=== PATIENT | female | born 1945 | race Caucasian/White ===

== ENCOUNTER → 2017-01-27 | Outpatient (CLI) | payer MEDICARE, OTHER ==
[~2017-01-27] MED LIST: ALBU0.086 INH; ALBU1.25 NEB; HYDR25TA5 PO; LISI-519 PO; METF1000 PO; NYST1000 SWISH-SWAL; PARO10TA2 PO; PRED20 PO; ROBISYP6 PO; SPIRCAP INH; SYMB160A INH; VENTAER INH; ZOLO50TA PO
--- NOTE | 2017-01-28 09:06 | RSPPFT ---
DATE OF PROCEDURE: 01/27/17 COMMENTS: VOLUMES DYNAMIC: FVC moderately reduced, FEV1 severely reduced. FLOWS: FEV1% moderately reduced; FEF 25-75 severely reduced. IMPRESSION: Severe obstructive ventilatory defect with improvement post-bronchodilator.
== END ==
LOC: HRSP 07:55
PROVIDERS: ATTEND Family Medicine
DX: R06.02 Shortness of breath (principal)
CPT/HCPCS: 94060

== ENCOUNTER → 2017-10-12 | Outpatient (CLI) | payer MEDICARE, OTHER ==
[~2017-10-12] MED LIST changes: -ALBU0.086 INH; -HYDR25TA5 PO; +MOBI7.5T PO; -NYST1000 SWISH-SWAL; -PARO10TA2 PO; +PRED10PA PO; -PRED20 PO; -ROBISYP6 PO
[2017-10-12 09:55] LABS: BASOPHIL # 0.1 TH/MM3 (0-0.2); BASOPHIL % 0.7 % (0.0-2.0); EOSINOPHIL # 0.2 TH/MM3 (0-0.4); EOSINOPHIL % 1.2 % (0.0-4.0); HEMATOCRIT 35.4 % (35.0-46.0); HEMO FLAGS DIFF FINAL; LYMPH % 25.9 % (9.0-44.0); LYMPHOCYTE # 3.5 TH/MM3 (1.0-4.8); MEAN CELL VOLUME 87.6 FL (80.0-100.0); MEAN CORPUSCULAR HEMOGLOBIN 29.2 PG (27.0-34.0); MEAN CORPUSCULAR HGB CONC 33.3 % (32.0-36.0); MONO % 6.4 % (0.0-8.0); NEUT % 65.8 % (16.0-70.0); PLATELET COUNT 354 TH/MM3 (150-450); RED BLOOD COUNT 4.04 MIL/MM3 (4.00-5.30); RED CELL DISTRIBUTION WIDTH 13.5 % (11.6-17.2); WHITE BLOOD COUNT 13.6 TH/MM3 (4.0-11.0)
[2017-10-12 10:19] LABS: RHEUMATOID FACTOR TRIGGER LESS THAN 10.0 IU/ML (0.0-14.9)
[2017-10-12 10:20] LABS: ALT (GPT) 20 U/L (10-53); ANION GAP 4 MEQ/L (5-15); AST (GOT) 13 U/L (15-37); BICARBONATE 29.3 MEQ/L (21.0-32.0); BLOOD UREA NITROGEN 12 MG/DL (7-18); CHLORIDE 99 MEQ/L (98-107); GLOMERULAR FILTRATION RATE 91 ML/MIN (>89); GLUCOSE,FASTING 111 MG/DL (74-99); POTASSIUM 3.8 MEQ/L (3.5-5.1); SODIUM (NA) 132 MEQ/L (136-145)
[2017-10-12 10:22] LABS: ALKALINE PHOSPHATASE 54 U/L (45-117); HDL CHOLESTEROL 53.3 MG/DL (40.0-60.0); LDL CHOLESTEROL 107 MG/DL (0-99); TOTAL BILIRUBIN ADULT 0.2 MG/DL (0.2-1.0)
[2017-10-12 10:27] LABS: MICRO ALBUMIN RANDOM URINE RAW 6.8 MG/L (0.0-30.0)
[2017-10-12 11:11] LABS: WESTERGREN SEDIMENTATION RATE 22 mm/hr (0-30)
[2017-10-12 12:26] LABS: HEMOGLOBIN A1a 1.2 %; HEMOGLOBIN A1b 1.8 %; HEMOGLOBIN LA1C 2.2 %; HEMOGLOBIN P3 3.7 %
== END ==
LOC: CLAB 09:15
PROVIDERS: ATTEND Family Medicine
DX: E11.9 Type 2 diabetes mellitus without complications (principal); M25.50 Pain in unspecified joint
CPT/HCPCS: 36415; 80053; 80061; 82043; 83036; 85025; 85652; 86200; 86430

== ENCOUNTER 2017-12-29 12:55 | Emergency (ER) | payer MEDICARE, OTHER ==
[~2017-12-29 12:55] MED LIST changes: +CALCTAB33 PO; -PRED10PA PO; +PRED20 PO; +ZOSTINJ SQ
[2017-12-29 13:31] VITALS: BP 102/60; PULSE 64; RESP 18; TEMP 98.4; O2SAT 99
[2017-12-29] MEDS ORDERED: SODIUM CHLORIDE 0.9% FLUSH 10 ML FLUSH IVF PRN (14:00)
[2017-12-29 14:02] VITALS: BP_SYST 107; BP_SYST 11; BP_SYST 118; BP_DIAS 55; BP_DIAS 57
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
[2017-12-29 14:34] LABS: AUTOMATED NEUTROPHIL # 8.7 TH/MM3 (1.8-7.7); BASOPHIL # 0.1 TH/MM3 (0-0.2); BASOPHIL % 0.4 % (0.0-2.0); EOSINOPHIL # 0.1 TH/MM3 (0-0.4); EOSINOPHIL % 0.5 % (0.0-4.0); HEMATOCRIT 34.9 % (35.0-46.0); HEMOGLOBIN 11.6 GM/DL (11.6-15.3); MEAN CORPUSCULAR HEMOGLOBIN 28.3 PG (27.0-34.0); MEAN CORPUSCULAR HGB CONC 33.3 % (32.0-36.0); MEAN PLATELET VOLUME 7.5 FL (7.0-11.0); MONO % 4.2 % (0.0-8.0); MONOCYTE # 0.5 TH/MM3 (0-0.9); NEUT % 76.9 % (16.0-70.0); PLATELET COUNT 315 TH/MM3 (150-450); RED CELL DISTRIBUTION WIDTH 15.2 % (11.6-17.2); WHITE BLOOD COUNT 11.3 TH/MM3 (4.0-11.0)
[2017-12-29 14:58] LABS: ALBUMIN 3.3 GM/DL (3.4-5.0); AST (GOT) 9 U/L (15-37); BICARBONATE 25.8 MEQ/L (21.0-32.0); BLOOD UREA NITROGEN 13 MG/DL (7-18); CALCIUM 8.8 MG/DL (8.5-10.1); CHLORIDE 92 MEQ/L (98-107); CREATININE 0.68 MG/DL (0.50-1.00); GLOMERULAR FILTRATION RATE 85 ML/MIN (>89); GLUCOSE,RANDOM 142 MG/DL (74-106); SODIUM (NA) 126 MEQ/L (136-145)
[2017-12-29 14:59] LABS: ALT (GPT) 16 U/L (10-53)
[2017-12-29 15:01] LABS: ALKALINE PHOSPHATASE 45 U/L (45-117); TOTAL BILIRUBIN ADULT 0.3 MG/DL (0.2-1.0)
--- NOTE | 2017-12-30 11:20 | EKG ---
Date Performed: 12/29/2017 Time Performed: 15:24:42 PTAGE: 72 years EKG: Sinus rhythm NORMAL ECG Since the prior tracing, there has been no significant change PREVIOUS TRACING : 08/24/2015 21.56 DOCTOR: Kermit Rider Interpretating Date/Time 12/30/2017 11:16:27
== END 2017-12-29 15:52 | disposition home or self-care (01) ==
LOC: NEPD 12:55
DX: R42 Dizziness and giddiness (principal); R55 Syncope and collapse; E87.1 Hypo-osmolality and hyponatremia; J45.909 Unspecified asthma, uncomplicated; I10 Essential (primary) hypertension; E11.9 Type 2 diabetes mellitus without complications; Z72.0 Tobacco use
CPT/HCPCS: 80053; 85025; 93005; 99284

== ENCOUNTER 2018-01-31 10:19 | Emergency (ER) | payer MEDICARE, OTHER ==
[~2018-01-31] VITALS: Ht 154.9 cm; Wt 47.5 kg
[2018-01-31 10:27] VITALS: BP 146/67; PULSE 81; RESP 18; TEMP 98.7; O2SAT 97
[2018-01-31 10:31] VITALS: BP 146/67; PULSE 80; RESP 18; TEMP 98.7; O2SAT 97
[2018-01-31] MEDS ORDERED: ASPI-516 CHEW (10:42)
[2018-01-31] MEDS ORDERED: PRED10 PO (10:42)
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
[2018-01-31] MEDS ORDERED: MORPHINE SULFATE 4 MG/ML INJ IM ONE (11:30)
--- NOTE | 2018-01-31 11:32 | RADRPT ---
EXAM DATE/TIME: 01/31/2018 10:57 [facility] COMPARISON: No previous studies available for comparison. INDICATIONS : Right arm pain, fall. MEDICAL HISTORY : None. SURGICAL HISTORY : None. ENCOUNTER: Initial ACUITY: 4 - 6 days PAIN SCORE: 10/10 LOCATION: Right proximal humerus FINDINGS: There is an angulated fracture of the proximal humerus which appears to extend into the surgical neck . There is 40 angulation and possible impaction. The relationship of the humeral head to the gleno id is maintained on these 2 views. The visualized right upper ribs are intact. CONCLUSION: Angulated fracture of the proximal humerus. Cal Quiles MD on January 31, 2018 at 11:29 Board Certified Radiologist. This report was verified electronically.
[2018-01-31 11:45] VITALS: BP 145/108; PULSE 73; RESP 20; O2SAT 100
[2018-01-31 12:30] VITALS: BP 132/67; PULSE 70; RESP 18; O2SAT 98
[2018-01-31] MEDS ORDERED: HYDR-3516 PO (12:40)
== END 2018-01-31 13:15 | disposition home or self-care (01) ==
LOC: NEPE 10:19
DX: S42.291A Other displaced fracture of upper end of right humerus, initial encounter for closed fracture (principal); W01.0XXA Fall on same level from slipping, tripping and stumbling without subsequent striking against object, initial encounter; Y92.008 Other place in unspecified non-institutional (private) residence as the place of occurrence of the external cause
CPT/HCPCS: 29240; 73060; 96372; 99283; J2270

== ENCOUNTER 2018-12-28 11:23 | Inpatient (IN) ==
[2018-12-28] MEDS ORDERED: Sod Chloride 0.9% Inj 1,000 ML IV.SIG ONE ×2 (12:14→13:33)
[2018-12-28] MEDS ORDERED: Morphine Inj 4 MG/ML Vial IV.PUSH ONE (12:14)
--- NOTE | 2018-12-28 12:48 | ED ---
HPI General Chief Complaint: Fall Stated Complaint: AMS Time Seen by Provider: 12/28/18 12:05 Source: patient and EMS Mode of arrival: EMS Limitations: no limitations History of Present Illness HPI Narrative: 73 YO F with PMH of DM presents to the ED for evaluation of right hip pain. Per EMS the patient was discovered yelling behind her apartment door by a [employer] who was canvassing the area. The patient was found down on the floor by EMS. The patient is alert to self and situation. She does not know how or when she fell. She states that she hasn't had anything to eat or drink "in weeks because I haven't been able to move." She denies headache, dizziness, CP, N/V, abdominal pain. She endorses chronic urinary incontinence. She takes metformin for her DM. She is unsure of the last time that she took metformin. Related Data Home Medications Medication Instructions Recorded Confirmed Unable to Obtain Home Meds 12/28/18 12/28/18 Allergies Allergy/AdvReac Type Severity Reaction Status Date / Time No Known Allergies Allergy Verified 12/28/18 11:50 Review of Systems ROS: all other systems reviewed are negative [facility] Medical History Medical History Diabetes (Acute) Surgical history unknown (Acute) Social History Social History Substance History: No History of Abuse Second Hand Smoke Exposure: Yes Smoking Status: Current every day smoker Tobacco Type: Cigarettes How Often Do You Have a Drink Containing Alcohol: Never Recent Travel in [facility] within the Last 8 Weeks: No Recent Out of Country Travel within the Last 8 Weeks: No Immunization History Tetanus Immunization: Unsure Exam Narrative Exam Narrative: GENERAL: Thin, hirsute white female in no acute distress. SKIN: Focused skin assessment warm/dry. HEAD: Atraumatic. Normocephalic. No tenderness to palpation. No bony step- offs. EYES: Pupils equal and round. No scleral icterus. No injection or drainage. ENT: No nasal bleeding or discharge. Mucous membranes pink and dry. NECK: Trachea midline. No JVD. CARDIOVASCULAR: Regular rate and rhythm. No murmur appreciated. RESPIRATORY: No accessory muscle use. Clear to auscultation. Breath sounds equal bilaterally. GASTROINTESTINAL: Abdomen soft, non-tender, nondistended. Hepatic and splenic margins not palpable. Active bowel sounds. MUSCULOSKELETAL: No obvious deformities. No clubbing. No cyanosis. No edema. FOCUSED RIGHT LOWER EXTREMITY EXAM: 2+ DP pulse. Sensation intact to light touch distally. Leg is shortened and externally rotated. Ecchymosis noted of the hip. No tenderness to palpation. Range of motion testing deferred. NEUROLOGICAL: Awake and alert. No obvious cranial nerve deficits. Motor grossly within normal limits. Normal speech. PSYCHIATRIC: Appropriate mood and affect; insight and judgment normal. Course Initial Documented Vital Signs Temperature 97.8 F 12/28/18 11:50 Pulse Rate 88 12/28/18 11:50 Respiratory Rate 20 12/28/18 11:50 Blood Pressure 160/92 H 12/28/18 11:50 Last Documented Vital Signs Temperature 97.8 F 12/28/18 11:50 Pulse Rate 88 12/28/18 12:14 Respiratory Rate 18 12/28/18 11:54 Blood Pressure 160/92 H 12/28/18 11:54 Pulse Oximetry 98 12/28/18 12:14 Medical Decision Making MDM Narrative Medical decision making narrative: 73-year-old female with PMH of DM presents the ED via EMS for evaluation after being found down by a [employer] who knocked on her door. Patient is unable to provide a detailed history but states "I have not had anything to eat or drink in weeks because I was unable to get out." Vitals reviewed. Exam suspicious for right hip fracture with foreshortening and external rotation of the leg and ecchymosis at the hip. IV was established. Patient was administered 1 L normal saline, 2 mg of morphine. X-ray reveals comminuted, impacted right hip fracture by my read. Richardson's traction ordered. CMP shows glucose of 396, BUN 145, creatinine 3.02. Patient was administered a second liter of NS, 6 units of insulin IV. I spoke with Dr. Villar, on-call orthopedic surgeon. She plans surgery tomorrow. Recheck blood glucose 208. I spoke with Dr. Gooden, resident, who agrees to accept the patient to the medicine service under Dr. Romero. Please see medicine and ortho of notes for disposition. Medical Screen Exam Complete: Yes Emergency Medical Condition: Yes Differential Diagnosis Differential Diagnosis: hip fracture versus metabolic derangement versus dehydration versus fall versus musculoskeletal pain versus other Lab Data Result diagrams: 12/28/18 12:42 12/28/18 12:42 Lab Results 12/28/18 12/28/18 12/28/18 Range/Units 12:42 12:42 12:42 WBC 13.7 H (4.0-11.0) th/mm3 RBC 4.35 (4.00-5.30) mil/mm3 Hgb 12.1 (11.6-15.3) gm/dL Hct 36.5 (35.0-46.0) % MCV 83.9 (80.0-100.0) fL MCH 27.7 (27.0-34.0) pg MCHC 33.0 (32.0-36.0) % RDW 17.3 H (11.6-17.2) % Plt Count 237 (150-450) th/mm3 MPV 9.5 (7.0-11.0) fL Neut % (Auto) 81.8 H (16.0-70.0) % Lymph % (Auto) 10.3 (9.0-44.0) % [place] % (Auto) 7.7 (0.0-8.0) % Eos % (Auto) 0.0 (0.0-4.0) % Baso % (Auto) 0.2 (0.0-2.0) % Neut # (Auto) 11.2 H (1.8-7.7) th/mm3 Lymph # (Auto) 1.4 (1.0-4.8) th/mm3 [place] # (Auto) 1.1 H (0.0-0.9) th/mm3 Eos # (Auto) 0.0 (0.0-0.4) th/mm3 Baso # (Auto) 0.0 (0.0-0.2) th/mm3 WBC Differential . Differential Comment Auto diff final PT 14.0 H (9.8-11.6) sec INR 1.4 Ratio APTT 21.1 L (23.4-31.7) sec Sodium 154 H (136-145) meq/L Potassium 4.3 (3.5-5.1) meq/L Chloride 117 H (98-107) meq/L Carbon Dioxide 22.3 (21.0-32.0) meq/L Anion Gap 15 (5-15) meq/L BUN 145 H (7-18) mg/dL Creatinine 3.02 H (0.50-1.00) mg/dL Estimated GFR 15 L (>89) mL/min POC Glucose (68-110) mg/dl Random Glucose 396 H (74-106) mg/dL Calcium 8.6 (8.5-10.1) mg/dL Total Bilirubin 0.7 (0.2-1.0) mg/dL AST 23 (15-37) U/L ALT 23 (10-53) U/L Alkaline Phosphatase 72 (45-117) U/L Total Creatine Kinase (26-192) U/L CK-MB (CK-2) (0.5-3.6) ng/mL Total Protein 7.9 (6.4-8.2) g/dL Albumin 3.4 (3.4-5.0) g/dL Blood Type Antibody Screen 12/28/18 12/28/18 12/28/18 Range/Units 12:42 12:42 14:55 WBC (4.0-11.0) th/mm3 RBC (4.00-5.30) mil/mm3 Hgb (11.6-15.3) gm/dL Hct (35.0-46.0) % MCV (80.0-100.0) fL MCH (27.0-34.0) pg MCHC (32.0-36.0) % RDW (11.6-17.2) % Plt Count (150-450) th/mm3 MPV (7.0-11.0) fL Neut % (Auto) (16.0-70.0) % Lymph % (Auto) (9.0-44.0) % [place] % (Auto) (0.0-8.0) % Eos % (Auto) (0.0-4.0) % Baso % (Auto) (0.0-2.0) % Neut # (Auto) (1.8-7.7) th/mm3 Lymph # (Auto) (1.0-4.8) th/mm3 [place] # (Auto) (0.0-0.9) th/mm3 Eos # (Auto) (0.0-0.4) th/mm3 Baso # (Auto) (0.0-0.2) th/mm3 WBC Differential Differential Comment PT (9.8-11.6) sec INR Ratio APTT (23.4-31.7) sec Sodium (136-145) meq/L Potassium (3.5-5.1) meq/L Chloride (98-107) meq/L Carbon Dioxide (21.0-32.0) meq/L Anion Gap (5-15) meq/L BUN (7-18) mg/dL Creatinine (0.50-1.00) mg/dL Estimated GFR (>89) mL/min POC Glucose 208 H (68-110) mg/dl Random Glucose (74-106) mg/dL Calcium (8.5-10.1) mg/dL Total Bilirubin (0.2-1.0) mg/dL AST (15-37) U/L ALT (10-53) U/L Alkaline Phosphatase (45-117) U/L Total Creatine Kinase 107 (26-192) U/L CK-MB (CK-2) 2.1 (0.5-3.6) ng/mL Total Protein (6.4-8.2) g/dL Albumin (3.4-5.0) g/dL Blood Type A Positive Antibody Screen Negative Imaging Data Radiologist's impression: Chest X-Ray 12/28/18 12:14 CONCLUSION: 1. No acute cardiopulmonary disease. 2. Degenerative changes and scoliosis of the thoracic spine. Hip X-Ray 12/28/18 12:15 CONCLUSION: Comminuted intratrochanteric fracture of the right hip Head CT 12/28/18 13:34 CONCLUSION: 1. Diffuse cerebral atrophy. 2. Moderate periventricular and subcortical white matter small vessel ischemic changes bilaterally. 3. No acute infarct, acute hemorrhage, midline shift or extra-axial fluid collection. . . ECG Data EKG Prior to Arrival: No Attestation: I personally reviewed and interpreted this ECG as follows: Interpretation: Rate 93, sinus rhythm with PVCs. ST inversion in II, III, AVF and lateral leads. Reviewed by Dr. Llanes. Discharge Plan Discharge Disposition Patient Disposition: ED Admit(ED Internal Use Only) Discharge Condition Condition: Stable Discharge Order Discharge Orders: ED Use Only Admit Order (Routine); Ordered 12/28/18 Ordered By: Mayte Harper Physicians Team ED Provider: Mark Lyons ED Midlevel Provider: Mayte Harper Primary Care Provider: UNKNOWN, Other Providers: Lyudmila Villar Rxs /Orders / Referrals /Forms Prescriptions: No Action Unable to Obtain Home Meds RF: 0 Discharge Interventions Interventions: Vital Signs Last Done: 12/28/18 11:54 Status ED Status: Pending Admission
[2018-12-28 13:01] LABS: Baso % (Auto) 0.2 % (0.0-2.0); Hematocrit 36.5 % (35.0-46.0); Hemoglobin 12.1 gm/dL (11.6-15.3); Lymph # (Auto) 1.4 th/mm3 (1.0-4.8); Lymph % (Auto) 10.3 % (9.0-44.0); Mean Corpuscular Hemoglobin 27.7 pg (27.0-34.0); Mean Corpuscular Volume 83.9 fL (80.0-100.0); Mean Platelet Volume 9.5 fL (7.0-11.0); Mono # (Auto) 1.1 th/mm3 (0.0-0.9); Mono % (Auto) 7.7 % (0.0-8.0); Neut # (Auto) 11.2 th/mm3 (1.8-7.7); Neut % (Auto) 81.8 % (16.0-70.0); Platelet Count 237 th/mm3 (150-450); Red Blood Count 4.35 mil/mm3 (4.00-5.30); Red Cell Distribution Width 17.3 % (11.6-17.2); White Blood Count 13.7 th/mm3 (4.0-11.0)
--- NOTE | 2018-12-28 13:01 | XR ---
EXAM DATE: 12/28/2018 12:57 PM EST AGE/SEX: 73 years / Female INDICATIONS: Fall. Short of breath. CLINICAL DATA: This is the patient's initial encounter. Patient reports that signs and symptoms have been present for 1 day and indicates a pain score of Nonresponsive. MEDICAL/SURGICAL HISTORY: Non-responsive. Non-responsive. COMPARISON: [facility] [place], CHEST SINGLE AP, 08/24/2015. . FINDINGS: A single AP view of the chest demonstrates the lungs to be symmetrically aerated without evidence of mass, infiltrate or effusion. The cardiomediastinal contours are unremarkable. Degenerative changes and scoliosis of the thoracic spine are noted. Old healed fracture of the right proximal humerus is n oted. CONCLUSION: 1. No acute cardiopulmonary disease. 2. Degenerative changes and scoliosis of the thoracic spine. Electronically signed by: Mark Barajas MD Board Certified Radiologist 12/28/2018 1:00 PM EST
[2018-12-28 13:11] LABS: Activated Partial Thrombo Time 21.1 sec (23.4-31.7); INR 1.4 Ratio
[2018-12-28 13:17] LABS: Alkaline Phosphatase 72 U/L (45-117); Blood Urea Nitrogen 145 mg/dL (7-18); Creatine Kinase 107 U/L (26-192); Total Protein 7.9 g/dL (6.4-8.2)
--- NOTE | 2018-12-28 13:26 | XR ---
EXAM DATE: 12/28/2018 12:58 PM EST AGE/SEX: 73 years / Female INDICATIONS: Right hip pain after fall. CLINICAL DATA: This is the patient's initial encounter. Patient reports that signs and symptoms have been present for 1 day and indicates a pain score of Nonresponsive. MEDICAL/SURGICAL HISTORY: Non-responsive. Non-responsive. COMPARISON: [facility], XR PELVIS AP, 11/05/2017. . FINDINGS: Comminuted intertrochanteric fracture of the right hip with varus angulation of the main fracture fra gments. Bony pelvis and left hip are otherwise intact. Atherosclerotic calcification of the regional vasculature CONCLUSION: Comminuted intratrochanteric fracture of the right hip Electronically signed by: Puma Jackson MD Board Certified Radiologist 12/28/2018 1:24 PM EST
[2018-12-28 13:27] LABS: Alanine Aminotransferase 23 U/L (10-53); Albumin 3.4 g/dL (3.4-5.0); Anion Gap 15 meq/L (5-15); Aspartate Aminotransferase 23 U/L (15-37); Calcium 8.6 mg/dL (8.5-10.1); Carbon Dioxide 22.3 meq/L (21.0-32.0); Chloride 117 meq/L (98-107); Glomerular Filtration Rate 15 mL/min (>89); Glucose,Random 396 mg/dL (74-106); Potassium 4.3 meq/L (3.5-5.1); Sodium 154 meq/L (136-145)
[2018-12-28 13:33] LABS: Creatine Kinase MB 2.1 ng/mL (0.5-3.6)
[2018-12-28] MEDS ORDERED: Morphine Sulfate Inj 2 MG/ML Vial IV.PUSH ONE (13:37)
--- NOTE | 2018-12-28 14:12 | CT ---
EXAM DATE: 12/28/2018 2:07 PM EST AGE/SEX: 73 years / Female INDICATIONS: Patient fell. Altered mental status CLINICAL DATA: This is the patient's initial encounter. Patient reports that signs and symptoms have been present for 1 day and indicates a pain score of 0/10. MEDICAL/SURGICAL HISTORY: Diabetes. None. RADIATION DOSE: 56.35 CTDI (mGy) COMPARISON: No prior exams available for comparison. TECHNIQUE: CT of the head without contrast. Using automated exposure control and adjustment of the mA and/or kV according to patient size, radiation dose was kept as low as reasonably achievable to ob tain optimal diagnostic quality images. DICOM format image data is available electronically for revi ew and comparison. FINDINGS: Cerebrum: Diffuse cerebral atrophy is noted. Moderate periventricular and subcortical white matter s mall vessel ischemic changes are noted bilaterally. There is no acute infarct, acute hemorrhage, midl ine shift or extra-axial fluid collection. Posterior Fossa: The cerebellum and brainstem are intact. The 4th ventricle is midline. The cerebe llopontine angle is unremarkable. Extracranial: The visualized portion of the orbits is intact. Skull: The calvaria is intact. No evidence of skull fracture. CONCLUSION: 1. Diffuse cerebral atrophy. 2. Moderate periventricular and subcortical white matter small vessel ischemic changes bilaterally. 3. No acute infarct, acute hemorrhage, midline shift or extra-axial fluid collection. . . Electronically signed by: Mark Barajas MD Board Certified Radiologist 12/28/2018 2:10 PM EST
--- NOTE | 2018-12-28 15:55 | P.HPFP ---
History of Present Illness Primary Care Physician: UNKNOWN <Adele Romero 12/29/18 13:06> UNKNOWN <Michel hCou 12/28/18 15:55> Chief Complaint: broken hip <Michel Chou 12/28/18 15:55> History of Present Illness: She is a 73-year-old female who presents after a fall and hip fracture. Stated that she was found yelling behind her apartment door by a [employer] who is canvassing there. EMS found her on the floor. She stated that her original fall was 2-3 weeks ago. She had pain in the hip immediately after the fall continues to have pain at this time. Since that time she states she was able to get up and walk around the house. She states she is able to get able to do so. At one point she also stated that she was able to eat and drink a normal amount and that she was urinating a normal amount. She does not use a walker or cane at home. At another point during the interview she stated: "I might be exaggerating some of this." She denies lightheadedness, dizziness, chest pain, palpitations, shortness of breath. She is oriented to person and place, but not to time. Her statements are inconsistent and sometimes difficult to understand. Medical: History of diabetes, states not currently treated She does have a history of hypertension, but does not think she is on any meds right now asthma as a kid and adult, takes albuterol as needed Surgical: Denies surgical history Social: Lives by herself Unable to assess her functional status due to her mental state <Michel Chou 12/28/18 20:32> - Diagnosis (1) Altered mental status (2) Hypernatremia (3) Hip fracture (4) Diabetes (5) Asthma <Adele Romero 12/29/18 13:06> (1) Altered mental status (2) Hypernatremia (3) Hip fracture (4) Diabetes (5) Asthma <Michel Chou 12/28/18 20:28> Inpatient Certification: I certify that the inpatient services were ordered in accordance with Medicare regulations governing the order. This includes certification that hospital inpatient services are reasonable and necessary and in the case of services not specified as inpatient-only under 42 CFR 419.22(n), that they are appropriately provided as inpatient services in accordance to with the 2-midnight benchmark under 43 CFR 412.3(e) <NickAdele 12/29/18 13:06> I certify that the inpatient services were ordered in accordance with Medicare regulations governing the order. This includes certification that hospital inpatient services are reasonable and necessary and in the case of services not specified as inpatient-only under 42 CFR 419.22(n), that they are appropriately provided as inpatient services in accordance to with the 2-midnight benchmark under 43 CFR 412.3(e) <Anandterri Michel Randhawa 12/28/18 20:12> Review of Systems Constitutional: Denies chills, Denies fever(s) <Anandterri SydneeMichel Watkins 15:55> Eyes: Denies change in vision <Anandterri SydneeMichel Roland 12/28/18 15:55> Ears, Nose, Mouth, and Throat: Denies abnormal hearing <Berkley RandhawaMichel Watkins 12/28/18 15:55> Cardiovascular: Denies chest pain, Denies rapid, pounding, or irregular heartbeat, Denies shortness of breath <Anandterri SydneeMichel 12/28/18 15: 55> Respiratory: Denies cough, Denies shortness of breath <Prakashleo SydneeMichel 12/28/18 15:55> Gastrointestinal: Denies abdominal pain, Denies change in bowel habits < Prakashleo Michel Randhawa 12/28/18 20:12> PMFSH - History History Provided By: Patient, Cigarette Book Maker / EMT <Prakashleo Michel Randhawa 12/28 15:55> - Medical History Medical History: Medical History (Last Reviewed 12/28/18 @ 12:46 by HALIMA Blount) Diabetes Surgical history unknown <NickAdele Malachi 12/29/18 13:06> Medical History (Last Reviewed 12/28/18 @ 12:46 by HALIMA Blount) Diabetes Surgical history unknown <Anandterri SydneeMichel Roland 12/28/18 15:55> - Tobacco History Second Hand Smoke Exposure: Yes <Michel Chou 12/28/18 15:55> Tobacco Use In Past 30 Days: Yes <Michel Chou 12/28/18 15:55> Smoking Status: Current every day smoker <Michel Chou 12/28/18 15:55> Tobacco Type: Cigarettes <Michel Chou 12/28/18 15:55> - Alcohol History How Often Do You Have a Drink Containing Alcohol: Never <Michel Chou 12/28/18 15:55> - Substance Use History Substance History: No History of Abuse <Michel Chou 12/28/18 15: 55> - Travel History Recent Travel in the [facility] Within the Last 8 Weeks: No <Michel Chou 12/28/18 15:55> Recent Travel Out of the Country Within the Last 8 Weeks: No <Michel Chou 12/28/18 15:55> - Immunization History Tetanus Immunization: Unsure <Michel Chou 12/28/18 15:55> Medications and Allergies Allergies Allergy/AdvReac Type Severity Reaction Status Date / Time No Known Allergies Allergy Verified 12/28/18 11:50 <Adele Romero - 12/29/18 13:06> Home Medications Medication Instructions Recorded Confirmed Type Unable to Obtain Home Meds 12/28/18 12/28/18 History <Adele Romero - 12/29/18 13:06> Active Medications: Active Medications Acetaminophen (Tylenol) 650 mg PO Q4H PRN PRN Reason: TEMP>101F, PAIN 1-10, HEADACHE Al Hydroxide/Mg Hydroxide (Milk Of Magnesia Liq) 30 ml PO Q12H PRN PRN Reason: Mild Constipation Albuterol (Albuterol Neb (Prn)) 2.5 mg NEB Q4HR NEB PRN PRN Reason: SHORTNESS OF BREATH Dextrose (D5w Inj) 1,000 mls @ 125 mls/hr IV.CONT .Q8H MIKHAIL Last Admin: 12/29/18 11:10 Dose: Not Given Lactated Ringer's (Lr 1000 Ml Inj) 1,000 mls @ 30 mls/hr IV.CONT .Q24H ONE Stop: 12/29/18 22:14 Sodium Chloride (Ns Inj) 500 mls @ 30 mls/hr IV.CONT .[id number] ONE Stop: 12/29/18 14:54 Insulin Aspart (Novolog Insulin Correctional Sugar Inj) 0 unit SQ ACHS AND 3AM MIKHAIL; Protocol Last Admin: 12/29/18 11:41 Dose: Not Given Morphine Sulfate (Morphine Inj) 2 mg IV.PUSH Q4H PRN PRN Reason: SEE DOSE INSTRUCTIONS Last Admin: 12/29/18 01:41 Dose: 2 mg Ondansetron HCl (Zofran Inj) 4 mg IV.PUSH Q6H PRN PRN Reason: NAUSEA OR VOMITING Senna/Docusate Sodium (Omnae-Colace) 1 tab PO BID [facility] Last Admin: 12/29/18 08:47 Dose: Not Given Sennosides (Senokot) 17.2 mg PO Q12H PRN PRN Reason: Moderate Constipation Sodium Chloride (Ns Flush) 2 ml IV.FLUSH BID [facility] Last Admin: 12/29/18 08:47 Dose: Not Given Sodium Chloride (Ns Flush) 2 ml IV.FLUSH PRN PRN PRN Reason: FLUSH AFTER USING IV ACCESS <Adele Romero - 12/29/18 13:06> Active Medications Sodium Chloride (Ns Flush) 2 ml IV.FLUSH UNSCH PRN PRN Reason: FLUSH AFTER USING IV ACCESS Last Admin: 12/28/18 12:57 Dose: 2 ml <Michel Chou - 12/28/18 15:55> Exam Vital signs: Vital Signs 12/28/18 15:55 12/28/18 18:10 12/28/18 21:30 Temperature 98.8 F Pulse Rate 93 H 92 H 95 H Respiratory Rate 18 18 18 Blood Pressure 160/86 H 172/75 H 139/63 Pulse Oximetry 98 97 95 12/29/18 01:12 12/29/18 01:54 12/29/18 04:00 Temperature 98.1 F 97.6 F Pulse Rate 93 H 96 H Respiratory Rate 18 20 Blood Pressure 128/56 L 132/61 Pulse Oximetry 96 94 L 92 L 12/29/18 07:43 12/29/18 11:51 Temperature 98.6 F 98.6 F Pulse Rate 96 H 96 H Respiratory Rate 16 16 Blood Pressure 111/79 111/79 Pulse Oximetry 98 Intake & Output 12/28/18 12/29/18 12/29/18 18:59 06:59 18:59 Intake Total 1999 1320 / 1320 1000 / 1000 Output Total 1100 / 1100 Balance 1999 220 / 220 1000 / 1000 Weight 65.771 kg 50.8 kg Intake: IV 1999 1200 / 1200 1000 / 1000 D5W Inj 1,000 ML @ 125 mls/hr 1000 / 1000 1000 / 1000 IV.CONT .Q8H MIKHAIL Rx#:[id number] LR 1000 mL Inj 1,000 ML @ 100 200 / 200 mls/hr IV.CONT .Q10H MIKHAIL Rx#: [id number] NS Inj 1,000 ML @ Wide Open IV. 1000 / 1000 SIG BOLUS ONE Rx#:[id number] Oral 120 / 120 Output: Urine 1100 / 1100 Other: Date of Last Bowel Movement 12/28/18 # Bowel Movements 0 <Adele Romero - 12/29/18 13:06> Vital Signs 12/28/18 11:50 12/28/18 11:54 12/28/18 12:14 Temperature 97.8 F Pulse Rate 88 96 H 88 Respiratory Rate 20 18 Blood Pressure 160/92 H 160/92 H Pulse Oximetry 98 Intake & Output 12/27/18 12/28/18 12/28/18 18:59 06:59 18:59 Intake Total 1000 / 1000 Balance 1000 / 1000 Weight 65.771 kg Intake: IV 1000 / 1000 NS Inj 1,000 ML @ Wide Open IV. 1000 / 1000 SIG BOLUS ONE Rx#:[id number] <Michel Chou J - 12/28/18 15:55> Narrative: General: Well developed, in no acute distress Eyes: EOMI, anicteric scleral, no conjunctival injection ENT: Atraumatic, MMM Neck: Trachea midline, no masses or lymphadenopathy Respiratory: Normal respiratory effort, lungs clear to auscultation bilaterally with good aeration Cardiovascular: Regular rate and rhythm without murmur, 2+ pedal pulses, no peripheral edema Abdomen: Bowel sounds present. Soft, non-tender. No masses noted. Skin: no rashes or lesions noted Psychiatric: Somnolent, oriented x2 (not time) Neurovascularly intact distal to the fracture. Richardson's traction in place. <Berkley Michel Randhawa - 12/28/18 20:32> Results - Labs Result diagrams: 12/29/18 06:22 12/29/18 09:57 <NickAdele Malachi - 12/29/18 13:06> Abnormal lab results 12/28/18 12/28/18 12/28/18 Range/Units 12:42 12:42 14:55 RBC (4.00-5.30) mil/mm3 Hgb (11.6-15.3) gm/dL Hct (35.0-46.0) % RDW (11.6-17.2) % Neut % (Auto) (16.0-70.0) % Lassen % (Auto) (0.0-8.0) % Neut # (Auto) (1.8-7.7) th/mm3 [place]assen # (Auto) (0.0-0.9) th/mm3 PT 14.0 H (9.8-11.6) sec APTT 21.1 L (23.4-31.7) sec Sodium 154 H (136-145) meq/L Chloride 117 H (98-107) meq/L Carbon Dioxide (21.0-32.0) meq/L BUN 145 H (7-18) mg/dL Creatinine 3.02 H (0.50-1.00) mg/dL Estimated GFR 15 L (>89) mL/min POC Glucose 208 H (68-110) mg/dl Random Glucose 396 H (74-106) mg/dL Calcium (8.5-10.1) mg/dL Urine Clarity (Clear) Urine Glucose (UA) (Negative) mg/dL Urine Ketones (Negative) mg/dL Urine Occult Blood (Negative) Uric Acid Crystals (None) /hpf Urine Mucus (Occasional) /lpf 12/28/18 12/28/18 12/28/18 Range/Units 15:20 18:07 23:02 RBC (4.00-5.30) mil/mm3 Hgb (11.6-15.3) gm/dL Hct (35.0-46.0) % RDW (11.6-17.2) % Neut % (Auto) (16.0-70.0) % Lassen % (Auto) (0.0-8.0) % Neut # (Auto) (1.8-7.7) th/mm3 [place]assen # (Auto) (0.0-0.9) th/mm3 PT (9.8-11.6) sec APTT (23.4-31.7) sec Sodium 158 H* (136-145) meq/L Chloride 125 H D (98-107) meq/L Carbon Dioxide 20.7 L (21.0-32.0) meq/L BUN 125 H (7-18) mg/dL Creatinine 2.32 H (0.50-1.00) mg/dL Estimated GFR 21 L (>89) mL/min POC Glucose 254 H (68-110) mg/dl Random Glucose 195 H D (74-106) mg/dL Calcium 7.5 L D (8.5-10.1) mg/dL Urine Clarity Hazy H (Clear) Urine Glucose (UA) 500 or greater H (Negative) mg/dL Urine Ketones Trace H (Negative) mg/dL Urine Occult Blood Small H (Negative) Uric Acid Crystals Rare H (None) /hpf Urine Mucus Few H (Occasional) /lpf 12/28/18 12/29/18 12/29/18 Range/Units 23:40 02:47 06:14 RBC (4.00-5.30) mil/mm3 Hgb (11.6-15.3) gm/dL Hct (35.0-46.0) % RDW (11.6-17.2) % Neut % (Auto) (16.0-70.0) % Lassen % (Auto) (0.0-8.0) % Neut # (Auto) (1.8-7.7) th/mm3 [place]assen # (Auto) (0.0-0.9) th/mm3 PT (9.8-11.6) sec APTT (23.4-31.7) sec Sodium 158 H* 158 H* (136-145) meq/L Chloride 125 H 125 H (98-107) meq/L Carbon Dioxide 20.7 L (21.0-32.0) meq/L BUN 120 H 113 H (7-18) mg/dL Creatinine 2.19 H 2.10 H (0.50-1.00) mg/dL Estimated GFR 22 L 23 L (>89) mL/min POC Glucose 322 H (68-110) mg/dl Random Glucose 237 H 179 H (74-106) mg/dL Calcium 7.6 L 7.8 L (8.5-10.1) mg/dL Urine Clarity (Clear) Urine Glucose (UA) (Negative) mg/dL Urine Ketones (Negative) mg/dL Urine Occult Blood (Negative) Uric Acid Crystals (None) /hpf Urine Mucus (Occasional) /lpf 12/29/18 12/29/18 12/29/18 Range/Units 06:22 06:22 08:00 RBC 3.76 L (4.00-5.30) mil/mm3 Hgb 10.7 L (11.6-15.3) gm/dL Hct 32.2 L (35.0-46.0) % RDW 17.5 H (11.6-17.2) % Neut % (Auto) 74.2 H (16.0-70.0) % Lassen % (Auto) 9.7 H (0.0-8.0) % Neut # (Auto) 8.0 H (1.8-7.7) th/mm3 [place]assen # (Auto) 1.1 H (0.0-0.9) th/mm3 PT (9.8-11.6) sec APTT (23.4-31.7) sec Sodium 155 H (136-145) meq/L Chloride 123 H (98-107) meq/L Carbon Dioxide (21.0-32.0) meq/L BUN 100 H (7-18) mg/dL Creatinine 1.95 H (0.50-1.00) mg/dL Estimated GFR 25 L (>89) mL/min POC Glucose 316 H (68-110) mg/dl Random Glucose 309 H D (74-106) mg/dL Calcium 7.7 L (8.5-10.1) mg/dL Urine Clarity (Clear) Urine Glucose (UA) (Negative) mg/dL Urine Ketones (Negative) mg/dL Urine Occult Blood (Negative) Uric Acid Crystals (None) /hpf Urine Mucus (Occasional) /lpf 02/28/19 02/28/19 Range/Units 09:57 11:10 RBC (4.00-5.30) mil/mm3 Hgb (11.6-15.3) gm/dL Hct (35.0-46.0) % RDW (11.6-17.2) % Neut % (Auto) (16.0-70.0) % Lassen % (Auto) (0.0-8.0) % Neut # (Auto) (1.8-7.7) th/mm3 [place]assen # (Auto) (0.0-0.9) th/mm3 PT (9.8-11.6) sec APTT (23.4-31.7) sec Sodium 156 H* (136-145) meq/L Chloride 124 H (98-107) meq/L Carbon Dioxide (21.0-32.0) meq/L BUN 93 H (7-18) mg/dL Creatinine 2.01 H (0.50-1.00) mg/dL Estimated GFR 24 L (>89) mL/min POC Glucose 175 H (68-110) mg/dl Random Glucose 170 H D (74-106) mg/dL Calcium 8.0 L (8.5-10.1) mg/dL Urine Clarity (Clear) Urine Glucose (UA) (Negative) mg/dL Urine Ketones (Negative) mg/dL Urine Occult Blood (Negative) Uric Acid Crystals (None) /hpf Urine Mucus (Occasional) /lpf Short CBC 12/29/18 Range/Units 06:22 WBC 10.8 (4.0-11.0) th/mm3 Hgb 10.7 L (11.6-15.3) gm/dL Hct 32.2 L (35.0-46.0) % Plt Count 182 (150-450) th/mm3 BMP 12/28/18 12/28/18 12/28/18 12:42 18:07 23:40 Sodium 154 H 158 H* 158 H* Potassium 4.3 3.8 3.8 Chloride 117 H 125 H D 125 H Carbon Dioxide 22.3 20.7 L 20.7 L BUN 145 H 125 H 120 H Creatinine 3.02 H 2.32 H 2.19 H Calcium 8.6 7.5 L D 7.6 L 12/29/18 12/29/18 12/29/18 02:47 06:22 09:57 Sodium 158 H* 155 H 156 H* Potassium 3.6 3.8 3.5 Chloride 125 H 123 H 124 H Carbon Dioxide 24.5 21.6 23.9 BUN 113 H 100 H 93 H Creatinine 2.10 H 1.95 H 2.01 H Calcium 7.8 L 7.7 L 8.0 L Cardiac Enzymes 12/28/18 Range/Units 12:42 Total Creatine Kinase 107 (26-192) U/L CK-MB (CK-2) 2.1 (0.5-3.6) ng/mL Liver Function 12/28/18 Range/Units 12:42 Total Bilirubin 0.7 (0.2-1.0) mg/dL AST 23 (15-37) U/L ALT 23 (10-53) U/L Alkaline Phosphatase 72 (45-117) U/L Albumin 3.4 (3.4-5.0) g/dL Urine 12/28/18 Range/Units 15:20 Urine Color Yellow (Yellw/Straw) Urine Clarity Hazy H (Clear) Urine pH 5.0 (5.0-8.5) Ur Specific [place] 1.015 (1.002-1.035) Urine Protein Negative (Neg-Trace) mg/dL Urine Glucose (UA) 500 or greater H (Negative) mg/dL <Adele Romero - 12/29/18 13:06> Abnormal lab results 12/28/18 12/28/18 12/28/18 Range/Units 12:42 12:42 12:42 WBC 13.7 H (4.0-11.0) th/mm3 RDW 17.3 H (11.6-17.2) % Neut % (Auto) 81.8 H (16.0-70.0) % Neut # (Auto) 11.2 H (1.8-7.7) th/mm3 Lassen # (Auto) 1.1 H (0.0-0.9) th/mm3 PT 14.0 H (9.8-11.6) sec APTT 21.1 L (23.4-31.7) sec Sodium 154 H (136-145) meq/L Chloride 117 H (98-107) meq/L BUN 145 H (7-18) mg/dL Creatinine 3.02 H (0.50-1.00) mg/dL Estimated GFR 15 L (>89) mL/min POC Glucose (68-110) mg/dl Random Glucose 396 H (74-106) mg/dL 12/28/18 Range/Units 14:55 WBC (4.0-11.0) th/mm3 RDW (11.6-17.2) % Neut % (Auto) (16.0-70.0) % Neut # (Auto) (1.8-7.7) th/mm3 Lassen # (Auto) (0.0-0.9) th/mm3 PT (9.8-11.6) sec APTT (23.4-31.7) sec Sodium (136-145) meq/L Chloride (98-107) meq/L BUN (7-18) mg/dL Creatinine (0.50-1.00) mg/dL Estimated GFR (>89) mL/min POC Glucose 208 H (68-110) mg/dl Random Glucose (74-106) mg/dL Short CBC 12/28/18 Range/Units 12:42 WBC 13.7 H (4.0-11.0) th/mm3 Hgb 12.1 (11.6-15.3) gm/dL Hct 36.5 (35.0-46.0) % Plt Count 237 (150-450) th/mm3 BMP 12/28/18 12:42 Sodium 154 H Potassium 4.3 Chloride 117 H Carbon Dioxide 22.3 BUN 145 H Creatinine 3.02 H Calcium 8.6 Cardiac Enzymes 12/28/18 Range/Units 12:42 Total Creatine Kinase 107 (26-192) U/L CK-MB (CK-2) 2.1 (0.5-3.6) ng/mL Liver Function 12/28/18 Range/Units 12:42 Total Bilirubin 0.7 (0.2-1.0) mg/dL AST 23 (15-37) U/L ALT 23 (10-53) U/L Alkaline Phosphatase 72 (45-117) U/L Albumin 3.4 (3.4-5.0) g/dL <Michel Chou - 12/28/18 15:55> - Imaging Impressions Hip X-Ray 12/28/18 12:15 CONCLUSION: Comminuted intratrochanteric fracture of the right hip Head CT 12/28/18 13:34 CONCLUSION: 1. Diffuse cerebral atrophy. 2. Moderate periventricular and subcortical white matter small vessel ischemic changes bilaterally. 3. No acute infarct, acute hemorrhage, midline shift or extra-axial fluid collection. . . <Adele Romero - 12/29/18 13:06> Impressions Chest X-Ray 12/28/18 12:14 CONCLUSION: 1. No acute cardiopulmonary disease. 2. Degenerative changes and scoliosis of the thoracic spine. Hip X-Ray 12/28/18 12:15 CONCLUSION: Comminuted intratrochanteric fracture of the right hip Head CT 12/28/18 13:34 CONCLUSION: 1. Diffuse cerebral atrophy. 2. Moderate periventricular and subcortical white matter small vessel ischemic changes bilaterally. 3. No acute infarct, acute hemorrhage, midline shift or extra-axial fluid collection. . . <Michel Chou - 12/28/18 15:55> Caprini VTE Risk Assessment Caprini VTE Risk Assessment: Moderate/High Risk (score >= 2) <Michel Chou - 12/28/18 20:12> Caprini Risk Assessment Model: Point Value = 1 Point Value = 2 Point Value = 3 Point Value = 5 Age 41-60 Minor surgery BMI > 25 kg/m2 Swollen legs Varicose veins or History of unexplained or recurrent spontaneous Oral contraceptives or hormone replacement Sepsis (< 1 month) Serious lung disease, including pneumonia (< 1 month) Abnormal pulmonary function Acute myocardial infarction Congestive heart failure (< 1 month) History of inflammatory bowel disease Medical patient at bed rest Age 61-74 Arthroscopic surgery Major open surgery (> 45 min) Laparoscopic surgery (> 45 min) Malignancy Confined to bed (> 72 hours) Immobilizing plaster cast Central venous access Age >= 75 History of VTE Family history of VTE Factor V Leiden Prothrombin [id number] Lupus anticoagulant Anticardiolipin antibodies Elevated serum homocysteine Heparin-induced thrombocytopenia Other congenital or acquired thrombophilia Stroke (< 1 month) Elective arthroplasty Hip, pelvis, or leg fracture Acute spinal cord injury (< 1 month) <Adele Romero - 12/29/18 13:06> Point Value = 1 Point Value = 2 Point Value = 3 Point Value = 5 Age 41-60 Minor surgery BMI > 25 kg/m2 Swollen legs Varicose veins or History of unexplained or recurrent spontaneous Oral contraceptives or hormone replacement Sepsis (< 1 month) Serious lung disease, including pneumonia (< 1 month) Abnormal pulmonary function Acute myocardial infarction Congestive heart failure (< 1 month) History of inflammatory bowel disease Medical patient at bed rest Age 61-74 Arthroscopic surgery Major open surgery (> 45 min) Laparoscopic surgery (> 45 min) Malignancy Confined to bed (> 72 hours) Immobilizing plaster cast Central venous access Age >= 75 History of VTE Family history of VTE Factor V Leiden Prothrombin [id number] Lupus anticoagulant Anticardiolipin antibodies Elevated serum homocysteine Heparin-induced thrombocytopenia Other congenital or acquired thrombophilia Stroke (< 1 month) Elective arthroplasty Hip, pelvis, or leg fracture Acute spinal cord injury (< 1 month) <Michel Chou - 12/28/18 15:55> Prophylaxis Regimen: Total Risk Factor Score Risk Level Prophylaxis Regimen 0-1 Low Early ambulation 2 Moderate Order ONE of the following: *Sequential Compression Device (SCD) *Heparin 5000 units SQ BID 3-4 Higher Order ONE of the following medications: *Heparin 5000 units SQ TID *Enoxaparin/Lovenox 40 mg SQ daily (WT < 150 kg, CrCl > 30 mL/min) *Enoxaparin/Lovenox 30 mg SQ daily (WT < 150 kg, CrCl > 10-29 mL/min) *Enoxaparin/Lovenox 30 mg SQ BID (WT < 150 kg, CrCl > 30 mL/min) AND/OR *Sequential Compression Device (SCD) 5 or more Highest Order ONE of the following medications: *Heparin 5000 units SQ TID (Preferred with Epidurals) *Enoxaparin/Lovenox 40 mg SQ daily (WT < 150 kg, CrCl > 30 mL/min) *Enoxaparin/Lovenox 30 mg SQ daily (WT < 150 kg, CrCl > 10-29 mL/min) *Enoxaparin/Lovenox 30 mg SQ BID (WT < 150 kg, CrCl > 30 mL/min) AND *Sequential Compression Device (SCD) <Adele Romero - 12/29/18 13:06> Total Risk Factor Score Risk Level Prophylaxis Regimen 0-1 Low Early ambulation 2 Moderate Order ONE of the following: *Sequential Compression Device (SCD) *Heparin 5000 units SQ BID 3-4 Higher Order ONE of the following medications: *Heparin 5000 units SQ TID *Enoxaparin/Lovenox 40 mg SQ daily (WT < 150 kg, CrCl > 30 mL/min) *Enoxaparin/Lovenox 30 mg SQ daily (WT < 150 kg, CrCl > 10-29 mL/min) *Enoxaparin/Lovenox 30 mg SQ BID (WT < 150 kg, CrCl > 30 mL/min) AND/OR *Sequential Compression Device (SCD) 5 or more Highest Order ONE of the following medications: *Heparin 5000 units SQ TID (Preferred with Epidurals) *Enoxaparin/Lovenox 40 mg SQ daily (WT < 150 kg, CrCl > 30 mL/min) *Enoxaparin/Lovenox 30 mg SQ daily (WT < 150 kg, CrCl > 10-29 mL/min) *Enoxaparin/Lovenox 30 mg SQ BID (WT < 150 kg, CrCl > 30 mL/min) AND *Sequential Compression Device (SCD) <Michel Chou - 12/28/18 15:55> Assessment and Plan - Assessment (1) Altered mental status Code(s): R41.82 - Altered mental status, unspecified Status: Acute (2) Hypernatremia Code(s): E87.0 - Hyperosmolality and hypernatremia Status: Acute (3) Hip fracture Code(s): S72.009A - Fracture of unspecified part of neck of unspecified femur, initial encounter for closed fracture Status: Acute (4) Diabetes Code(s): E11.9 - Type 2 diabetes mellitus without complications Status: Acute (5) Asthma Code(s): J45.909 - Unspecified asthma, uncomplicated Status: Acute <Adele Romero - 12/29/18 13:06> (1) Altered mental status Code(s): R41.82 - Altered mental status, unspecified Status: Acute (2) Hypernatremia Code(s): E87.0 - Hyperosmolality and hypernatremia Status: Acute (3) Hip fracture Code(s): S72.009A - Fracture of unspecified part of neck of unspecified femur, initial encounter for closed fracture Status: Acute (4) Diabetes Code(s): E11.9 - Type 2 diabetes mellitus without complications Status: Acute (5) Asthma Code(s): J45.909 - Unspecified asthma, uncomplicated Status: Acute <Berkley RandhawaMichel Watkins - 12/28/18 20:28> - Assessment and Plan She is a 73-year-old female who presented long after her hip fracture. She reports that she was poorly mobile for 2-3 weeks after a fall. She was brought by EMS. She is a difficult historian. Hypernatremia and mental status changes: Mental status changes are most likely due to her hyponatremia/hyperosmolality. She also had a CT brain in the ED which shows diffuse cerebral atrophy some small vessel ischemic changes, but no acute infarct or hemorrhage. It is unclear how much of her mental status changes are chronic or acute. Her history of severe immobility for the past couple weeks is the likely cause of her hypernatremia. Due to her volume status she was given 2 L of NS in the ED Repeat BMP showed slight increase in her sodium level from 154-158 D5 water at 125 cc/h was ordered Every 4 hours BMPs to follow her electrolyte status Hip fracture: X-ray showed comminuted intratrochanteric fracture of the right hip. ED discussed the case with Dr. Villar who plans on taking her to the OR tomorrow. Richardson's traction ordered 2 mg of morphine every 4 hours as needed pain Diabetes: States she is taking metformin in the past, not currently on any medication Sliding scale insulin low-dose before meals at bedtime and 3 AM History of asthma: Albuterol as needed Fluids: D5 water 125 cc/h Electrolytes: monitor and replete as needed, further detailed above Nutrition: N.p.o. after midnight GI prophylaxis: not indicated VTE prophylaxis: SCD on the left lower extremity Disposition: Unsure of the safety of her living situation. Case management has been consulted. Patient was seen and examined with Dr. Romero <Michel Chou - 12/28/18 20:32> - Attending Attestation The exam, history, and the medical decision-making described in the above note were completed with the assistance of the resident physician. I reviewed and agree with the findings presented. I attest that I had a [id number] encounter with the patient on the same day, and personally performed and documented my assessment and findings in the medical record. I saw her in the ED on admission. Poor woman was slightly confused after her terrible ordeal <Adele Romero - 12/29/18 13:06>
[2018-12-28 16:18] LABS: Bilirubin,Urine Negative (Negative); Clarity,Urine Hazy (Clear); Color,Urine Yellow (Yellw/Straw); Glucose,Urine (UA) 500 or Greater mg/dL (Negative); Hyaline Casts,Urine 20 /lpf (0-3); Leukocyte Esterase,Urine Negative (Negative); Mucus,Urine Few /lpf (Occasional); Nitrite,Urine Negative (Negative); Specific Gravity,Urine 1.015 (1.002-1.035); Squamous Epithelial Cell,Urine 1 /hpf (0-5); Uric Acid Crystals,Urine Rare /hpf
[2018-12-28] MEDS ORDERED: Acetaminophen 325 MG Tablet PO PRN (17:00)
[2018-12-28 19:01] LABS: Calcium 7.5 mg/dL (8.5-10.1); Carbon Dioxide 20.7 meq/L (21.0-32.0); Potassium 3.8 meq/L (3.5-5.1)
[2018-12-28] MEDS: Dextrose 5% in Water Inj 1,000 ML IV.CONT SCH (20:31)
[2018-12-28] MEDS ORDERED: Sodium Chlor 0.9% Inj 500 ML IV.CONT ONE (22:15)
[2018-12-28] MEDS ORDERED: Chlorhexidine Gluconate 2% 1 Pack (2 Cloths) TOPICAL ONE (22:15)
[2018-12-28] MEDS: Senna/Docusate Sodium 8.6/50 MG Tablet PO SCH (23:05)
[2018-12-28] MEDS: Insulin NovoLOG Aspart Correctional Sugar Inj SQ SCH (23:06)
[2018-12-29 00:31] LABS: Calcium 7.6 mg/dL (8.5-10.1); Carbon Dioxide 20.7 meq/L (21.0-32.0); Potassium 3.8 meq/L (3.5-5.1)
[2018-12-29 00:36] LABS: Amphetamine Screen,Urine Neg (Neg); Barbiturate Screen,Urine Neg (Neg); Cannabinoid Screen,Urine Neg (Neg); Cocaine Screen,Urine Neg (Neg); Creatinine,Urine Random 112 mg/dL (27-300); Sodium,Urine Random 16 meq/L
[2018-12-29 00:42] LABS: Opiate Screen,Urine Neg (Neg)
[2018-12-29] MEDS: Morphine Inj 4 MG/ML Vial IV.PUSH PRN ×2 (01:41→13:32)
[2018-12-29 03:43] LABS: Calcium 7.8 mg/dL (8.5-10.1); Carbon Dioxide 24.5 meq/L (21.0-32.0); Potassium 3.6 meq/L (3.5-5.1)
[2018-12-29] MEDS: Dextrose 5% in Water Inj 1,000 ML IV.CONT SCH ×4 (05:47→22:00)
[2018-12-29] MEDS: Insulin NovoLOG Aspart Correctional Sugar Inj SQ SCH ×5 (06:18→23:41)
--- NOTE | 2018-12-29 06:41 | P.CONOP ---
[facility] Orthopedics Consult Note - [facility] Consult date: 12/29/18 Consult reason: fracture Chief complaint: R Hip Fracture, ELICEO, Dehydration Narrative: 73 YO F with PMH of DM presents to the ED for evaluation of right hip pain. Per EMS the patient was discovered yelling behind her apartment door by a [employer] who was canvassing the area. The patient was found down on the floor by EMS. The patient is alert to self and situation. She does not know how or when she fell. She denies headache, dizziness, CP, N/V, abdominal pain. She endorses chronic urinary incontinence. She takes metformin for her DM. She is unsure of the last time that she took metformin. Review of Systems Patient cooperate with answering questions but essentially states that she has no pain or symptoms anywhere. Denies fevers, chills, nausea, vomiting. Denies chest pain, cough, shortness of breath. Denies abdominal pain or change in urination. Denies back pain, weakness, numbness or tingling. Denies dizziness, blurry vision or throat pain. Reports right hip pain when I attempt to move her leg. 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 - Medical History Medical History: Medical History (Last Reviewed 12/28/18 @ 12:46 by HALIMA Blount) Diabetes Surgical history unknown - Tobacco History Second Hand Smoke Exposure: Yes Tobacco Use In Past 30 Days: Yes Smoking Status: Current every day smoker Tobacco Type: Cigarettes - Alcohol History How Often Do You Have a Drink Containing Alcohol: Never - Substance Use History Substance History: No History of Abuse - Travel History Recent Travel in the [place] Within the Last 8 Weeks: No Recent Travel Out of the Country Within the Last 8 Weeks: No - Immunization History Tetanus Immunization: Unsure Medications and Allergies Active Medications: Active Medications Acetaminophen (Tylenol) 650 mg PO Q4H PRN PRN Reason: TEMP>101F, PAIN 1-10, HEADACHE Al Hydroxide/Mg Hydroxide (Milk Of Magnesia Liq) 30 ml PO Q12H PRN PRN Reason: Mild Constipation Albuterol (Albuterol Neb (Prn)) 2.5 mg NEB Q4HR NEB PRN PRN Reason: SHORTNESS OF BREATH Dextrose (D5w Inj) 1,000 mls @ 125 mls/hr IV.CONT .Q8H [facility] Last Admin: 12/29/18 05:47 Dose: 125 mls/hr Lactated Ringer's (Lr 1000 Ml Inj) 1,000 mls @ 30 mls/hr IV.CONT .Q24H ONE Stop: 12/29/18 22:14 Sodium Chloride (Ns Inj) 500 mls @ 30 mls/hr IV.CONT .[id number] ONE Stop: 12/29/18 14:54 Insulin Aspart (Novolog Insulin Correctional Sugar Inj) 0 unit SQ ACHS AND 3AM MIKHAIL; Protocol Last Admin: 12/29/18 06:18 Dose: 7 unit Morphine Sulfate (Morphine Inj) 2 mg IV.PUSH Q4H PRN PRN Reason: SEE DOSE INSTRUCTIONS Last Admin: 12/29/18 01:41 Dose: 2 mg Ondansetron HCl (Zofran Inj) 4 mg IV.PUSH Q6H PRN PRN Reason: NAUSEA OR VOMITING Senna/Docusate Sodium (Monae-Colace) 1 tab PO BID [facility] Last Admin: 12/28/18 23:05 Dose: Not Given Sennosides (Senokot) 17.2 mg PO Q12H PRN PRN Reason: Moderate Constipation Sodium Chloride (Ns Flush) 2 ml IV.FLUSH BID [facility] Last Admin: 12/28/18 23:06 Dose: 2 ml Sodium Chloride (Ns Flush) 2 ml IV.FLUSH PRN PRN PRN Reason: FLUSH AFTER USING IV ACCESS Allergies Allergy/AdvReac Type Severity Reaction Status Date / Time No Known Allergies Allergy Verified 12/28/18 11:50 Home Medications Medication Instructions Recorded Confirmed Type Unable to Obtain Home Meds 12/28/18 12/28/18 History Exam Vital signs: Vital Signs 12/28/18 11:50 12/28/18 11:54 12/28/18 12:14 Temperature 97.8 F Pulse Rate 88 96 H 88 Respiratory Rate 20 18 Blood Pressure 160/92 H 160/92 H Pulse Oximetry 98 12/28/18 15:55 12/28/18 18:10 12/28/18 21:30 Temperature 98.8 F Pulse Rate 93 H 92 H 95 H Respiratory Rate 18 18 18 Blood Pressure 160/86 H 172/75 H 139/63 Pulse Oximetry 98 97 95 12/29/18 01:12 12/29/18 01:54 Temperature 98.1 F Pulse Rate 93 H Respiratory Rate 18 Blood Pressure 128/56 L Pulse Oximetry 96 94 L Intake & Output 12/28/18 12/28/18 12/29/18 06:59 18:59 06:59 Intake Total 1999 1200 / 1200 Balance 1999 1200 / 1200 Weight 65.771 kg Intake: IV 1999 1200 / 1200 D5W Inj 1,000 ML @ 125 mls/hr 1000 / 1000 IV.CONT .Q8H [facility] Rx#:[id number] LR 1000 mL Inj 1,000 ML @ 100 200 / 200 mls/hr IV.CONT .Q10H MIKHAIL Rx#: [id number] NS Inj 1,000 ML @ Wide Open IV. 1000 / 1000 SIG BOLUS ONE Rx#:[id number] Narrative: Awake, alert, no acute distress Normocephalic Pupils equal No JVD Moist mucous membranes Nonlabored respirations Soft nontender abdomen Regular rate Right upper extremity: No tenderness to palpation or visible deformities. Full active range of motion and strength throughout. Sensation intact. Brisk cap refill. Left upper extremity:No tenderness to palpation or visible deformities. Full active range of motion and strength throughout. Sensation intact. Brisk cap refill. Right lower extremity: Positive logroll. Unable to assess hip and knee range of motion due to pain. Patient demonstrates positive EHL and FHL. Sensation intact. Brisk cap refill. Left lower extremity:No tenderness to palpation or visible deformities. Full active range of motion and strength throughout. Sensation intact. Brisk cap refill. No rash Abnormal affect, confused at times Results - Labs Result Diagrams: 12/28/18 12:42 12/29/18 02:47 Labs: Laboratory Results - last 24 hr 12/28/18 12/28/18 12/28/18 12:42 12:42 12:42 WBC 13.7 H RBC 4.35 Hgb 12.1 Hct 36.5 MCV 83.9 MCH 27.7 MCHC 33.0 RDW 17.3 H Plt Count 237 MPV 9.5 Neut % (Auto) 81.8 H Lymph % (Auto) 10.3 [place] % (Auto) 7.7 Eos % (Auto) 0.0 Baso % (Auto) 0.2 Neut # (Auto) 11.2 H Lymph # (Auto) 1.4 [place] # (Auto) 1.1 H Eos # (Auto) 0.0 Baso # (Auto) 0.0 WBC Differential . Differential Comment Auto diff final PT 14.0 H INR 1.4 APTT 21.1 L Sodium 154 H Potassium 4.3 Chloride 117 H Carbon Dioxide 22.3 Anion Gap 15 BUN 145 H Creatinine 3.02 H Estimated GFR 15 L POC Glucose Random Glucose 396 H Calcium 8.6 Total Bilirubin 0.7 AST 23 ALT 23 Alkaline Phosphatase 72 Total Creatine Kinase CK-MB (CK-2) Total Protein 7.9 Albumin 3.4 Urine Color Urine Clarity Urine pH Ur Specific Anderson Urine Protein Urine Glucose (UA) Urine Ketones Urine Occult Blood Urine Nitrate Urine Bilirubin Urine Urobilinogen Ur Leukocyte Esterase Urine WBC Ur Squamous Epith Cells Uric Acid Crystals Hyaline Casts Urine Mucus Micro UA Comment Ur Microscopic Review Urine Osmolality Ur Random Creatinine Ur Random Sodium Urine Opiates Screen Ur Barbiturates Screen Ur Amphetamines Screen U Benzodiazepines Scrn Urine Cocaine Screen U Cannabinoids Screen Blood Type Antibody Screen 12/28/18 12/28/18 12/28/18 12:42 12:42 14:55 WBC RBC Hgb Hct MCV MCH MCHC RDW Plt Count MPV Neut % (Auto) Lymph % (Auto) [place] % (Auto) Eos % (Auto) Baso % (Auto) Neut # (Auto) Lymph # (Auto) [place] # (Auto) Eos # (Auto) Baso # (Auto) WBC Differential Differential Comment PT INR APTT Sodium Potassium Chloride Carbon Dioxide Anion Gap BUN Creatinine Estimated GFR POC Glucose 208 H Random Glucose Calcium Total Bilirubin AST ALT Alkaline Phosphatase Total Creatine Kinase 107 CK-MB (CK-2) 2.1 Total Protein Albumin Urine Color Urine Clarity Urine pH Ur Specific Anderson Urine Protein Urine Glucose (UA) Urine Ketones Urine Occult Blood Urine Nitrate Urine Bilirubin Urine Urobilinogen Ur Leukocyte Esterase Urine WBC Ur Squamous Epith Cells Uric Acid Crystals Hyaline Casts Urine Mucus Micro UA Comment Ur Microscopic Review Urine Osmolality Ur Random Creatinine Ur Random Sodium Urine Opiates Screen Ur Barbiturates Screen Ur Amphetamines Screen U Benzodiazepines Scrn Urine Cocaine Screen U Cannabinoids Screen Blood Type A Positive Antibody Screen Negative 12/28/18 12/28/18 12/28/18 15:20 15:20 15:20 WBC RBC Hgb Hct MCV MCH MCHC RDW Plt Count MPV Neut % (Auto) Lymph % (Auto) [place] % (Auto) Eos % (Auto) Baso % (Auto) Neut # (Auto) Lymph # (Auto) [place] # (Auto) Eos # (Auto) Baso # (Auto) WBC Differential Differential Comment PT INR APTT Sodium Potassium Chloride Carbon Dioxide Anion Gap BUN Creatinine Estimated GFR POC Glucose Random Glucose Calcium Total Bilirubin AST ALT Alkaline Phosphatase Total Creatine Kinase CK-MB (CK-2) Total Protein Albumin Urine Color Yellow Urine Clarity Hazy H Urine pH 5.0 Ur Specific Anderson 1.015 Urine Protein Negative Urine Glucose (UA) 500 or greater H Urine Ketones Trace H Urine Occult Blood Small H Urine Nitrate Negative Urine Bilirubin Negative Urine Urobilinogen Less than 2 Ur Leukocyte Esterase Negative Urine WBC Less than 1 Ur Squamous Epith Cells 1 Uric Acid Crystals Rare H Hyaline Casts 20 Urine Mucus Few H Micro UA Comment Cath Ur Microscopic Review Not Reportable Urine Osmolality 599 Ur Random Creatinine 112 Ur Random Sodium 16 Urine Opiates Screen Neg Ur Barbiturates Screen Neg Ur Amphetamines Screen Neg U Benzodiazepines Scrn Neg Urine Cocaine Screen Neg U Cannabinoids Screen Neg Blood Type Antibody Screen 12/28/18 12/28/18 12/28/18 18:07 23:02 23:40 WBC RBC Hgb Hct MCV MCH MCHC RDW Plt Count MPV Neut % (Auto) Lymph % (Auto) [place] % (Auto) Eos % (Auto) Baso % (Auto) Neut # (Auto) Lymph # (Auto) [place] # (Auto) Eos # (Auto) Baso # (Auto) WBC Differential Differential Comment PT INR APTT Sodium 158 H* 158 H* Potassium 3.8 3.8 Chloride 125 H D 125 H Carbon Dioxide 20.7 L 20.7 L Anion Gap 12 12 BUN 125 H 120 H Creatinine 2.32 H 2.19 H Estimated GFR 21 L 22 L POC Glucose 254 H Random Glucose 195 H D 237 H Calcium 7.5 L D 7.6 L Total Bilirubin AST ALT Alkaline Phosphatase Total Creatine Kinase CK-MB (CK-2) Total Protein Albumin Urine Color Urine Clarity Urine pH Ur Specific Anderson Urine Protein Urine Glucose (UA) Urine Ketones Urine Occult Blood Urine Nitrate Urine Bilirubin Urine Urobilinogen Ur Leukocyte Esterase Urine WBC Ur Squamous Epith Cells Uric Acid Crystals Hyaline Casts Urine Mucus Micro UA Comment Ur Microscopic Review Urine Osmolality Ur Random Creatinine Ur Random Sodium Urine Opiates Screen Ur Barbiturates Screen Ur Amphetamines Screen U Benzodiazepines Scrn Urine Cocaine Screen U Cannabinoids Screen Blood Type Antibody Screen 12/29/18 12/29/18 02:47 06:14 WBC RBC Hgb Hct MCV MCH MCHC RDW Plt Count MPV Neut % (Auto) Lymph % (Auto) [place] % (Auto) Eos % (Auto) Baso % (Auto) Neut # (Auto) Lymph # (Auto) [place] # (Auto) Eos # (Auto) Baso # (Auto) WBC Differential Differential Comment PT INR APTT Sodium 158 H* Potassium 3.6 Chloride 125 H Carbon Dioxide 24.5 Anion Gap 9 BUN 113 H Creatinine 2.10 H Estimated GFR 23 L POC Glucose 322 H Random Glucose 179 H Calcium 7.8 L Total Bilirubin AST ALT Alkaline Phosphatase Total Creatine Kinase CK-MB (CK-2) Total Protein Albumin Urine Color Urine Clarity Urine pH Ur Specific Anderson Urine Protein Urine Glucose (UA) Urine Ketones Urine Occult Blood Urine Nitrate Urine Bilirubin Urine Urobilinogen Ur Leukocyte Esterase Urine WBC Ur Squamous Epith Cells Uric Acid Crystals Hyaline Casts Urine Mucus Micro UA Comment Ur Microscopic Review Urine Osmolality Ur Random Creatinine Ur Random Sodium Urine Opiates Screen Ur Barbiturates Screen Ur Amphetamines Screen U Benzodiazepines Scrn Urine Cocaine Screen U Cannabinoids Screen Blood Type Antibody Screen - Diagnostic results Imaging: Impressions Chest X-Ray 12/28/18 12:14 CONCLUSION: 1. No acute cardiopulmonary disease. 2. Degenerative changes and scoliosis of the thoracic spine. Hip X-Ray 12/28/18 12:15 CONCLUSION: Comminuted intratrochanteric fracture of the right hip Head CT 12/28/18 13:34 CONCLUSION: 1. Diffuse cerebral atrophy. 2. Moderate periventricular and subcortical white matter small vessel ischemic changes bilaterally. 3. No acute infarct, acute hemorrhage, midline shift or extra-axial fluid collection. . . Assessment and Plan - Assessment and Plan 73-year-old female with multiple medical problems found down at home and with glucose in the 400s on presentation, patient was found to have a closed right intertrochanteric femur fracture Radiographs reviewed by myself and with the patient. She does have a comminuted highly displaced right intertrochanteric femur fracture. Options of management were discussed with the patient including nonoperative versus operative care. Given the nature of her injury, I recommended operative intervention in the form of intramedullary nail of her right intertrochanteric femur fracture. I explained to the patient that nonoperative management is typically not a reliable option given the type of fracture she has and the requirement for prolonged bed rest. This would predispose her to multiple medical issues including skin breakdown and ulcers, blood clots, pneumonias, and possibly even . At this time, her glucose has been corrected over the last 24 hours and therefore would recommend surgical intervention for fixation of her right intertrochanteric femur fracture today. Risks of surgery including but not limited to: Infection, nonunion or malunion, hardware malposition or failure, neurovascular injury, persistent hip pain and/or stiffness, possible need for further surgery, and other unforeseen complications were discussed with the patient. At this time she is consented to the above-mentioned procedure. She is n.p.o. for possible surgery later today. Awaiting medical clearance is patient's sodium is 158. Currently being hydrated to try to reduce sodium. Postoperative course was discussed with the patient. She will likely be partial weightbearing initially postoperatively with gradual transition to weightbearing as tolerated over the next couple of weeks.
[2018-12-29 07:17] LABS: Baso % (Auto) 0.3 % (0.0-2.0); Eos % (Auto) 0.3 % (0.0-4.0); Hematocrit 32.2 % (35.0-46.0); Hemoglobin 10.7 gm/dL (11.6-15.3); Lymph # (Auto) 1.7 th/mm3 (1.0-4.8); Lymph % (Auto) 15.5 % (9.0-44.0); Mean Corpuscular HGB Conc 33.2 % (32.0-36.0); Mean Corpuscular Hemoglobin 28.3 pg (27.0-34.0); Mean Corpuscular Volume 85.5 fL (80.0-100.0); Mean Platelet Volume 9.4 fL (7.0-11.0); Mono # (Auto) 1.1 th/mm3 (0.0-0.9); Mono % (Auto) 9.7 % (0.0-8.0); Neut % (Auto) 74.2 % (16.0-70.0); Platelet Count 182 th/mm3 (150-450); Red Blood Count 3.76 mil/mm3 (4.00-5.30); Red Cell Distribution Width 17.5 % (11.6-17.2); White Blood Count 10.8 th/mm3 (4.0-11.0)
[2018-12-29 07:51] LABS: Calcium 7.7 mg/dL (8.5-10.1); Carbon Dioxide 21.6 meq/L (21.0-32.0); Potassium 3.8 meq/L (3.5-5.1)
[2018-12-29] MEDS: Senna/Docusate Sodium 8.6/50 MG Tablet PO SCH ×2 (08:47→23:40)
--- NOTE | 2018-12-29 08:55 | P.HPFP ---
History of Present Illness Primary Care Physician: UNKNOWN Chief Complaint: broken hip History of Present Illness: Ms Pruitt is a 73-year-old female who presented after a fall and hip fracture. Stated that she was found yelling behind her apartment door by a [employer]oro[employer]rian[employer] who was canvassing there. EMS found her on the floor. She stated that her original fall was 2-3 weeks ago. She had pain in the hip immediately after the fall, continues to have pain at this time. Since that time she states she was able to get up and walk around the house. At one point she also stated that she was able to eat and drink a normal amount and that she was urinating a normal amount. She does not use a walker or cane at home. At another point during the interview she stated: "I might be exaggerating some of this." She denies lightheadedness, dizziness, chest pain, palpitations, shortness of breath. She is oriented to person and place, but not to time. Her statements are inconsistent and sometimes difficult to understand. This am she is requesting water and coffee. It is difficult to know exactly what happened as she stated, "I am just waking up and don't want to answer questions Medical: History of diabetes, states not currently treated. later she said she was once taking metformin but not currently She does have a history of hypertension, but does not think she is on any meds right now asthma as a kid and adult, takes albuterol as needed Surgical: Denies surgical history Social: Lives by herself Unable to assess her functional status due to her mental state - Diagnosis (1) Altered mental status (2) Hypernatremia (3) Hip fracture (4) Diabetes (5) Asthma Inpatient Certification: I certify that the inpatient services were ordered in accordance with Medicare regulations governing the order. This includes certification that hospital inpatient services are reasonable and necessary and in the case of services not specified as inpatient-only under 42 CFR 419.22(n), that they are appropriately provided as inpatient services in accordance to with the 2-midnight benchmark under 43 CFR 412.3(e) Estimated Total Length of Stay (Days): 2 Plans for Post Hospital Care: Not yet determined Review of Systems unobtainable due to mental condition PMFSH - History History Provided By: Patient, Procurement Forester / EMT - Medical History Medical History: Medical History (Last Reviewed 12/29/18 @ 07:48 by Monserrat Tai) Diabetes Surgical history unknown - Tobacco History Second Hand Smoke Exposure: Yes Tobacco Use In Past 30 Days: Yes Smoking Status: Current every day smoker Tobacco Type: Cigarettes - Alcohol History How Often Do You Have a Drink Containing Alcohol: Never - Substance Use History Substance History: No History of Abuse - Travel History Recent Travel in the [place] Within the Last 8 Weeks: No Recent Travel Out of the Country Within the Last 8 Weeks: No - Immunization History Tetanus Immunization: Unsure Medications and Allergies Active Medications: Active Medications Acetaminophen (Tylenol) 650 mg PO Q4H PRN PRN Reason: TEMP>101F, PAIN 1-10, HEADACHE Al Hydroxide/Mg Hydroxide (Milk Of Magnesia Liq) 30 ml PO Q12H PRN PRN Reason: Mild Constipation Albuterol (Albuterol Neb (Prn)) 2.5 mg NEB Q4HR NEB PRN PRN Reason: SHORTNESS OF BREATH Dextrose (D5w Inj) 1,000 mls @ 125 mls/hr IV.CONT .Q8H MIKHAIL Last Admin: 12/29/18 08:45 Dose: 125 mls/hr Lactated Ringer's (Lr 1000 Ml Inj) 1,000 mls @ 30 mls/hr IV.CONT .Q24H ONE Stop: 12/29/18 22:14 Sodium Chloride (Ns Inj) 500 mls @ 30 mls/hr IV.CONT .[id number] ONE Stop: 12/29/18 14:54 Insulin Aspart (Novolog Insulin Correctional Sugar Inj) 0 unit SQ ACHS AND 3AM MIKHAIL; Protocol Last Admin: 12/29/18 08:44 Dose: 7 unit Morphine Sulfate (Morphine Inj) 2 mg IV.PUSH Q4H PRN PRN Reason: SEE DOSE INSTRUCTIONS Last Admin: 12/29/18 01:41 Dose: 2 mg Ondansetron HCl (Zofran Inj) 4 mg IV.PUSH Q6H PRN PRN Reason: NAUSEA OR VOMITING Senna/Docusate Sodium (Monae-Colace) 1 tab PO BID [facility] Last Admin: 12/29/18 08:47 Dose: Not Given Sennosides (Senokot) 17.2 mg PO Q12H PRN PRN Reason: Moderate Constipation Sodium Chloride (Ns Flush) 2 ml IV.FLUSH BID [facility] Last Admin: 12/29/18 08:47 Dose: Not Given Sodium Chloride (Ns Flush) 2 ml IV.FLUSH PRN PRN PRN Reason: FLUSH AFTER USING IV ACCESS Allergies Allergy/AdvReac Type Severity Reaction Status Date / Time No Known Allergies Allergy Verified 12/28/18 11:50 Home Medications Medication Instructions Recorded Confirmed Type Unable to Obtain Home Meds 12/28/18 12/28/18 History Exam Vital signs: Vital Signs 12/28/18 11:50 12/28/18 11:54 12/28/18 12:14 Temperature 97.8 F Pulse Rate 88 96 H 88 Respiratory Rate 20 18 Blood Pressure 160/92 H 160/92 H Pulse Oximetry 98 12/28/18 15:55 12/28/18 18:10 12/28/18 21:30 Temperature 98.8 F Pulse Rate 93 H 92 H 95 H Respiratory Rate 18 18 18 Blood Pressure 160/86 H 172/75 H 139/63 Pulse Oximetry 98 97 95 12/29/18 01:12 12/29/18 01:54 12/29/18 04:00 Temperature 98.1 F 97.6 F Pulse Rate 93 H 96 H Respiratory Rate 18 20 Blood Pressure 128/56 L 132/61 Pulse Oximetry 96 94 L 92 L 12/29/18 07:43 Temperature 98.6 F Pulse Rate 96 H Respiratory Rate 16 Blood Pressure 111/79 Pulse Oximetry 98 Intake & Output 12/28/18 12/29/18 12/29/18 18:59 06:59 18:59 Intake Total 1999 1320 / 1320 1000 / 1000 Output Total 1100 / 1100 Balance 1999 220 / 220 1000 / 1000 Weight 65.771 kg 50.8 kg Intake: IV 1999 1200 / 1200 1000 / 1000 D5W Inj 1,000 ML @ 125 mls/hr 1000 / 1000 1000 / 1000 IV.CONT .Q8H MIKHAIL Rx#:[id number] LR 1000 mL Inj 1,000 ML @ 100 200 / 200 mls/hr IV.CONT .Q10H MIKHAIL Rx#: [id number] NS Inj 1,000 ML @ Wide Open IV. 1000 / 1000 SIG BOLUS ONE Rx#:[id number] Oral 120 / 120 Output: Urine 1100 / 1100 Other: # Bowel Movements 0 - Constitutional mild distress, thin, cachectic, disheveled, cooperative - Routine HEENT Exam Head: Present: normocephalic, atraumatic. Absent: scalp tenderness Eye: Present: EOMI. Absent: conjunctival icterus, scleral injection ENT: Present: mucous membranes moist, external ear normal - Routine Neck Exam Present: supple, full ROM, trachea midline. Absent: tracheal deviation - Routine Respiratory Exam Present: CTA bilaterally. Absent: accessory muscle use, patient mechanically ventilated, decreased breath sounds, rales, respiratory distress, rhonchi - Routine Cardiovascular Exam Present: RRR. Absent: murmur, gallop, rubs - Routine Abdominal Exam Present: soft. Absent: tenderness, distended, rebound - Routine Extremities Exam Absent: cyanosis, clubbing, edema, full ROM - Routine Skin Exam Present: intact, dry. Absent: pallor, mottling, petechiae - Routine Neurological Exam Present: alert, altered mental status, moving all extremities. Absent: nystagmus, hemineglect Results - Labs Result diagrams: 12/29/18 06:22 12/29/18 09:57 Abnormal lab results 12/28/18 12/28/18 12/28/18 Range/Units 12:42 12:42 12:42 WBC 13.7 H (4.0-11.0) th/mm3 RBC (4.00-5.30) mil/mm3 Hgb (11.6-15.3) gm/dL Hct (35.0-46.0) % RDW 17.3 H (11.6-17.2) % Neut % (Auto) 81.8 H (16.0-70.0) % [place] % (Auto) (0.0-8.0) % Neut # (Auto) 11.2 H (1.8-7.7) th/mm3 [place] # (Auto) 1.1 H (0.0-0.9) th/mm3 PT 14.0 H (9.8-11.6) sec APTT 21.1 L (23.4-31.7) sec Sodium 154 H (136-145) meq/L Chloride 117 H (98-107) meq/L Carbon Dioxide (21.0-32.0) meq/L BUN 145 H (7-18) mg/dL Creatinine 3.02 H (0.50-1.00) mg/dL Estimated GFR 15 L (>89) mL/min POC Glucose (68-110) mg/dl Random Glucose 396 H (74-106) mg/dL Calcium (8.5-10.1) mg/dL Urine Clarity (Clear) Urine Glucose (UA) (Negative) mg/dL Urine Ketones (Negative) mg/dL Urine Occult Blood (Negative) Uric Acid Crystals (None) /hpf Urine Mucus (Occasional) /lpf 12/28/18 12/28/18 12/28/18 Range/Units 14:55 15:20 18:07 WBC (4.0-11.0) th/mm3 RBC (4.00-5.30) mil/mm3 Hgb (11.6-15.3) gm/dL Hct (35.0-46.0) % RDW (11.6-17.2) % Neut % (Auto) (16.0-70.0) % [place] % (Auto) (0.0-8.0) % Neut # (Auto) (1.8-7.7) th/mm3 [place] # (Auto) (0.0-0.9) th/mm3 PT (9.8-11.6) sec APTT (23.4-31.7) sec Sodium 158 H* (136-145) meq/L Chloride 125 H D (98-107) meq/L Carbon Dioxide 20.7 L (21.0-32.0) meq/L BUN 125 H (7-18) mg/dL Creatinine 2.32 H (0.50-1.00) mg/dL Estimated GFR 21 L (>89) mL/min POC Glucose 208 H (68-110) mg/dl Random Glucose 195 H D (74-106) mg/dL Calcium 7.5 L D (8.5-10.1) mg/dL Urine Clarity Hazy H (Clear) Urine Glucose (UA) 500 or greater H (Negative) mg/dL Urine Ketones Trace H (Negative) mg/dL Urine Occult Blood Small H (Negative) Uric Acid Crystals Rare H (None) /hpf Urine Mucus Few H (Occasional) /lpf 12/28/18 12/28/18 12/29/18 Range/Units 23:02 23:40 02:47 WBC (4.0-11.0) th/mm3 RBC (4.00-5.30) mil/mm3 Hgb (11.6-15.3) gm/dL Hct (35.0-46.0) % RDW (11.6-17.2) % Neut % (Auto) (16.0-70.0) % [place] % (Auto) (0.0-8.0) % Neut # (Auto) (1.8-7.7) th/mm3 [place] # (Auto) (0.0-0.9) th/mm3 PT (9.8-11.6) sec APTT (23.4-31.7) sec Sodium 158 H* 158 H* (136-145) meq/L Chloride 125 H 125 H (98-107) meq/L Carbon Dioxide 20.7 L (21.0-32.0) meq/L BUN 120 H 113 H (7-18) mg/dL Creatinine 2.19 H 2.10 H (0.50-1.00) mg/dL Estimated GFR 22 L 23 L (>89) mL/min POC Glucose 254 H (68-110) mg/dl Random Glucose 237 H 179 H (74-106) mg/dL Calcium 7.6 L 7.8 L (8.5-10.1) mg/dL Urine Clarity (Clear) Urine Glucose (UA) (Negative) mg/dL Urine Ketones (Negative) mg/dL Urine Occult Blood (Negative) Uric Acid Crystals (None) /hpf Urine Mucus (Occasional) /lpf 12/29/18 12/29/18 12/29/18 Range/Units 06:14 06:22 06:22 WBC (4.0-11.0) th/mm3 RBC 3.76 L (4.00-5.30) mil/mm3 Hgb 10.7 L (11.6-15.3) gm/dL Hct 32.2 L (35.0-46.0) % RDW 17.5 H (11.6-17.2) % Neut % (Auto) 74.2 H (16.0-70.0) % [place] % (Auto) 9.7 H (0.0-8.0) % Neut # (Auto) 8.0 H (1.8-7.7) th/mm3 [place] # (Auto) 1.1 H (0.0-0.9) th/mm3 PT (9.8-11.6) sec APTT (23.4-31.7) sec Sodium 155 H (136-145) meq/L Chloride 123 H (98-107) meq/L Carbon Dioxide (21.0-32.0) meq/L BUN 100 H (7-18) mg/dL Creatinine 1.95 H (0.50-1.00) mg/dL Estimated GFR 25 L (>89) mL/min POC Glucose 322 H (68-110) mg/dl Random Glucose 309 H D (74-106) mg/dL Calcium 7.7 L (8.5-10.1) mg/dL Urine Clarity (Clear) Urine Glucose (UA) (Negative) mg/dL Urine Ketones (Negative) mg/dL Urine Occult Blood (Negative) Uric Acid Crystals (None) /hpf Urine Mucus (Occasional) /lpf 12/29/18 Range/Units 08:00 WBC (4.0-11.0) th/mm3 RBC (4.00-5.30) mil/mm3 Hgb (11.6-15.3) gm/dL Hct (35.0-46.0) % RDW (11.6-17.2) % Neut % (Auto) (16.0-70.0) % [place]ether % (Auto) (0.0-8.0) % Neut # (Auto) (1.8-7.7) th/mm3 [place] # (Auto) (0.0-0.9) th/mm3 PT (9.8-11.6) sec APTT (23.4-31.7) sec Sodium (136-145) meq/L Chloride (98-107) meq/L Carbon Dioxide (21.0-32.0) meq/L BUN (7-18) mg/dL Creatinine (0.50-1.00) mg/dL Estimated GFR (>89) mL/min POC Glucose 316 H (68-110) mg/dl Random Glucose (74-106) mg/dL Calcium (8.5-10.1) mg/dL Urine Clarity (Clear) Urine Glucose (UA) (Negative) mg/dL Urine Ketones (Negative) mg/dL Urine Occult Blood (Negative) Uric Acid Crystals (None) /hpf Urine Mucus (Occasional) /lpf Short CBC 12/28/18 12/29/18 Range/Units 12:42 06:22 WBC 13.7 H 10.8 (4.0-11.0) th/mm3 Hgb 12.1 10.7 L (11.6-15.3) gm/dL Hct 36.5 32.2 L (35.0-46.0) % Plt Count 237 182 (150-450) th/mm3 BMP 12/28/18 12/28/18 12/28/18 12:42 18:07 23:40 Sodium 154 H 158 H* 158 H* Potassium 4.3 3.8 3.8 Chloride 117 H 125 H D 125 H Carbon Dioxide 22.3 20.7 L 20.7 L BUN 145 H 125 H 120 H Creatinine 3.02 H 2.32 H 2.19 H Calcium 8.6 7.5 L D 7.6 L 12/29/18 12/29/18 02:47 06:22 Sodium 158 H* 155 H Potassium 3.6 3.8 Chloride 125 H 123 H Carbon Dioxide 24.5 21.6 BUN 113 H 100 H Creatinine 2.10 H 1.95 H Calcium 7.8 L 7.7 L Cardiac Enzymes 12/28/18 Range/Units 12:42 Total Creatine Kinase 107 (26-192) U/L CK-MB (CK-2) 2.1 (0.5-3.6) ng/mL Liver Function 12/28/18 Range/Units 12:42 Total Bilirubin 0.7 (0.2-1.0) mg/dL AST 23 (15-37) U/L ALT 23 (10-53) U/L Alkaline Phosphatase 72 (45-117) U/L Albumin 3.4 (3.4-5.0) g/dL Urine 12/28/18 Range/Units 15:20 Urine Color Yellow (Yellw/Straw) Urine Clarity Hazy H (Clear) Urine pH 5.0 (5.0-8.5) Ur Specific [place] 1.015 (1.002-1.035) Urine Protein Negative (Neg-Trace) mg/dL Urine Glucose (UA) 500 or greater H (Negative) mg/dL - Imaging Impressions Chest X-Ray 12/28/18 12:14 CONCLUSION: 1. No acute cardiopulmonary disease. 2. Degenerative changes and scoliosis of the thoracic spine. Hip X-Ray 12/28/18 12:15 CONCLUSION: Comminuted intratrochanteric fracture of the right hip Head CT 12/28/18 13:34 CONCLUSION: 1. Diffuse cerebral atrophy. 2. Moderate periventricular and subcortical white matter small vessel ischemic changes bilaterally. 3. No acute infarct, acute hemorrhage, midline shift or extra-axial fluid collection. . . Caprini VTE Risk Assessment Caprini VTE Risk Assessment: Moderate/High Risk (score >= 2) Caprini Risk Assessment Model: Point Value = 1 Point Value = 2 Point Value = 3 Point Value = 5 Age 41-60 Minor surgery BMI > 25 kg/m2 Swollen legs Varicose veins or History of unexplained or recurrent spontaneous Oral contraceptives or hormone replacement Sepsis (< 1 month) Serious lung disease, including pneumonia (< 1 month) Abnormal pulmonary function Acute myocardial infarction Congestive heart failure (< 1 month) History of inflammatory bowel disease Medical patient at bed rest Age 61-74 Arthroscopic surgery Major open surgery (> 45 min) Laparoscopic surgery (> 45 min) Malignancy Confined to bed (> 72 hours) Immobilizing plaster cast Central venous access Age >= 75 History of VTE Family history of VTE Factor V Leiden Prothrombin [id number] Lupus anticoagulant Anticardiolipin antibodies Elevated serum homocysteine Heparin-induced thrombocytopenia Other congenital or acquired thrombophilia Stroke (< 1 month) Elective arthroplasty Hip, pelvis, or leg fracture Acute spinal cord injury (< 1 month) Prophylaxis Regimen: Total Risk Factor Score Risk Level Prophylaxis Regimen 0-1 Low Early ambulation 2 Moderate Order ONE of the following: *Sequential Compression Device (SCD) *Heparin 5000 units SQ BID 3-4 Higher Order ONE of the following medications: *Heparin 5000 units SQ TID *Enoxaparin/Lovenox 40 mg SQ daily (WT < 150 kg, CrCl > 30 mL/min) *Enoxaparin/Lovenox 30 mg SQ daily (WT < 150 kg, CrCl > 10-29 mL/min) *Enoxaparin/Lovenox 30 mg SQ BID (WT < 150 kg, CrCl > 30 mL/min) AND/OR *Sequential Compression Device (SCD) 5 or more Highest Order ONE of the following medications: *Heparin 5000 units SQ TID (Preferred with Epidurals) *Enoxaparin/Lovenox 40 mg SQ daily (WT < 150 kg, CrCl > 30 mL/min) *Enoxaparin/Lovenox 30 mg SQ daily (WT < 150 kg, CrCl > 10-29 mL/min) *Enoxaparin/Lovenox 30 mg SQ BID (WT < 150 kg, CrCl > 30 mL/min) AND *Sequential Compression Device (SCD) Assessment and Plan - Assessment (1) Altered mental status Code(s): R41.82 - Altered mental status, unspecified Status: Acute (2) Hypernatremia Code(s): E87.0 - Hyperosmolality and hypernatremia Status: Acute (3) Hip fracture Code(s): S72.009A - Fracture of unspecified part of neck of unspecified femur, initial encounter for closed fracture Status: Acute (4) Diabetes Code(s): E11.9 - Type 2 diabetes mellitus without complications Status: Acute (5) Asthma Code(s): J45.909 - Unspecified asthma, uncomplicated Status: Acute - Assessment and Plan She is a 73-year-old female who presented long after her hip fracture. She reports that she was poorly mobile for 2-3 weeks after a fall. She was brought by EMS. She is a difficult historian. Hypernatremia and mental status changes: Mental status changes are most likely due to her hyponatremia/hyperosmolality. She also had a CT brain in the ED which shows diffuse cerebral atrophy some small vessel ischemic changes, but no acute infarct or hemorrhage. It is unclear how much of her mental status changes are chronic or acute. Her history of severe immobility for the past couple weeks is the likely cause of her hypernatremia. Due to her volume status she was given 2 L of NS in the ED Repeat BMP showed slight increase in her sodium level from 154-158 D5 water at 125 cc/h was ordered Every 4 hours BMPs to follow her electrolyte status -she is stable currently with her sodium. she was severely dehydrated on admission and will take some time to have her renal fxn back to completely normal. her electrolytes should hopefully return to normal over the next day or so Hip fracture: X-ray showed comminuted intratrochanteric fracture of the right hip. ED discussed the case with Dr. Villar who plans on taking her to the OR today Richardson's traction ordered 2 mg of morphine every 4 hours as needed pain Diabetes: States she is taking metformin in the past, not currently on any medication Sliding scale insulin low-dose before meals at bedtime and 3 AM History of asthma: Albuterol as needed Fluids: D5 water 125 cc/h, once she can start taking po after surgery she can be allowed fluids ad batsheva Electrolytes: monitor and replete as needed, further detailed above Nutrition: N.p.o. after noon GI prophylaxis: not indicated VTE prophylaxis: SCD on the left lower extremity Disposition: Unsure of the safety of her living situation. Case management has been consulted. (1) Altered mental status Qualifiers: Altered mental status type: transient alteration of awareness Qualified Code( s): R40.4 - Transient alteration of awareness (3) Hip fracture Qualifiers: Encounter type: initial encounter Fracture type: closed (4) Diabetes Qualifiers: Diabetes mellitus type: type 2 (5) Asthma Qualifiers: Asthma severity: mild
[2018-12-29 10:39] LABS: Carbon Dioxide 23.9 meq/L (21.0-32.0); Potassium 3.5 meq/L (3.5-5.1)
[2018-12-29] MEDS ORDERED: Influenza (Quadrivalent) Vaccine 0.5 ML Syringe IM ONE ×2 (16:00→20:00)
[2018-12-29] MEDS ORDERED: Budesonide-Formoterol 160/4.5 MCG 6 GM Inhaler INH SCH (17:00)
[2018-12-29] MEDS ORDERED: Sodium Chlor 0.9% Inj 500 ML IV.SIG SCH (17:00)
--- NOTE | 2018-12-29 17:31 | ECG ---
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
[2018-12-29] MEDS: Sertraline 50 MG Tablet PO SCH (18:09)
[2018-12-29] MEDS ORDERED: fentaNYL Citrate Inj 250 MCG/5 ML Ampul ONE (19:39)
[2018-12-29] MEDS ORDERED: Phenylephrine/NS 1000 MCG/10ML Syringe IV.PUSH ONE (20:08)
[2018-12-29] MEDS ORDERED: Glycopyrrolate Inj 1 MG/5 ML Syringe IV.PUSH ONE (20:08)
[2018-12-29] MEDS ORDERED: Lidocaine PF 1% Inj 5 ML Syringe OTHER ONE (20:08)
[2018-12-29] MEDS ORDERED: Neostigmine Inj 5 MG/5 ML Syringe IV.PUSH ONE (20:08)
[2018-12-29] MEDS ORDERED: ceFAZolin Inj 2 GM in Sodium Chlor 0.9% Inj 100 ML IV.SIG ONE (20:43)
[2018-12-29] MEDS ORDERED: ceFAZolin 2 GM IV; once IV.SIG ONE (21:00)
[2018-12-29] MEDS ORDERED: Post-op Orders (for Pharmacy) OTHER STA (21:02)
--- NOTE | 2018-12-29 21:02 | P.OP ---
Date of procedure: 12/29/18 Procedure: Intramedullary nail right intertrochanteric femur fracture Implants: Synthes 11 mm diameter TFN Anesthesia: GETA Surgeon: Lyudmila Villar MD Estimated blood loss (mL): 50 Pathology: none sent Operation and Findings: Indications for procedure: 73-year-old female presented after syncopal fall with acute onset of right hip pain and inability to ambulate. Patient was found to have a closed displaced right intertrochanteric femur fracture. Options of management were discussed with the patient. Risks, benefits, alternatives were discussed. At this time the patient wished to proceed with the above-mentioned procedure. The surgical procedure was assisted by MELISSA Mckay. His presence was necessary throughout this case for the manipulation and positioning of the surgical extremity. He was assisting me throughout the duration of this procedure. His skill set was medically necessary to complete this procedure. During the surgical case the surgical rn was working at the back table and he was directly assisting me. Description of procedure: Patient was brought back to the operating room where general anesthesia then ensued. Patient was then carefully positioned supine on the operating room fracture table with all bony prominences well-padded. Patient was prepped and draped in standard sterile fashion. Preoperative antibiotics were given within 1 hour of incision. A timeout was performed to identify the correct patient, side, site and procedures to be performed. A small approximately 2 inch incision was made just proximal and posterior to the tip of the greater trochanter. Sharp dissection was used through the skin, subcutaneous tissue and fascia. A guidewire was then placed into the tip of the greater trochanter on AP and lateral radiographs and advanced to the lesser trochanteric region. An opening reamer was then placed over this guidewire to allow access to the femoral canal and advanced to the lesser trochanteric region. A Synthes TFN intermediate length 11 mm diameter nail was then placed into the tip of the greater trochanter, advanced past the fracture site and into the proximal femur with the fracture held reduced. This was advanced into appropriate position on AP and lateral radiographs. The guide sleeves for the proximal locking blade were then inserted through the insertion handle and a small lateral incision was made through the skin, subcutaneous tissue and fascia. The guide sleeves were placed down to the lateral cortex of the proximal femur. A guidepin was then placed into the femoral neck and into the femoral head in a center-center position on AP and lateral radiographs. This was measured, drilled and an appropriately length proximal locking blade was then placed. Compression was then performed. The proximal locking screw was then tightened down and backed off a half of turn. The distal locking guides were then placed through the insertion handle and again a small lateral incision made through the skin, subcutaneous tissue and fascia. This was then drilled, measured and an appropriately length distal locking screw placed. The insertion handle was then removed. Final radiographs were obtained which demonstrated appropriate alignment of the fracture and hardware in good position. All wounds were thoroughly irrigated with normal saline laden with antibiotics. Deep tissue was closed with Vicryl sutures and the skin closed with lul. Sterile dressings were applied. Patient was then carefully transitioned back to hospital bed and awoken from general anesthesia. Disposition: Partial weightbearing 50% right lower extremity
--- NOTE | 2018-12-29 21:13 | XR ---
EXAM DATE: 12/29/2018 9:09 PM EST AGE/SEX: 73 years / Female INDICATIONS: Troch nail of the right hip done in the operating room. CLINICAL DATA: This is the patient's initial encounter. Patient reports that signs and symptoms have been present for 1 day and indicates a pain score of Nonresponsive. MEDICAL/SURGICAL HISTORY: Non-responsive. Non-responsive. COMPARISON: [facility], HIP RIGHT W AP PELVIS 2V, 12/28/2018. . FINDINGS: 4 images from the OR have been submitted. There is a short intramedullary lia and a helical blade see n extending through the femoral neck and head region. These successfully reduce the previously seen i ntertrochanteric femoral neck fracture on the right. CONCLUSION: Successful ORIF. Electronically signed by: Adebayo Contreras MD Board Certified Radiologist 12/29/2018 9:12 PM EST
[2018-12-29] MEDS: Budesonide-Formoterol 160/4.5 MCG 6 GM Inhaler INH SCH (23:41)
[2018-12-30] MEDS: Insulin NovoLOG Aspart Correctional Sugar Inj SQ SCH ×5 (05:05→21:31)
[2018-12-30] MEDS: Dextrose 5% in Water Inj 1,000 ML IV.CONT SCH ×2 (05:05→12:05)
[2018-12-30] MEDS: Morphine Inj 4 MG/ML Vial IV.PUSH PRN ×3 (05:29→18:12)
[2018-12-30 05:50] LABS: Hematocrit 28.7 % (35.0-46.0); Hemoglobin 9.3 gm/dL (11.6-15.3); Mean Corpuscular HGB Conc 32.4 % (32.0-36.0); Mean Corpuscular Hemoglobin 27.3 pg (27.0-34.0); Mean Corpuscular Volume 84.2 fL (80.0-100.0); Mean Platelet Volume 9.4 fL (7.0-11.0); Platelet Count 154 th/mm3 (150-450); Red Blood Count 3.41 mil/mm3 (4.00-5.30); Red Cell Distribution Width 17.3 % (11.6-17.2); White Blood Count 15.6 th/mm3 (4.0-11.0)
[2018-12-30 06:13] LABS: Calcium 7.6 mg/dL (8.5-10.1); Carbon Dioxide 24.2 meq/L (21.0-32.0); Potassium 3.7 meq/L (3.5-5.1)
--- NOTE | 2018-12-30 07:10 | P.PNOP ---
Subjective Interval history: Resting comfortably Physical Exam Vital signs: Vital Signs 12/29/18 07:43 12/29/18 11:51 12/29/18 13:34 Temperature 98.6 F 98.7 F Pulse Rate 96 H 105 H Respiratory Rate 16 16 18 Blood Pressure 111/79 107/53 L Pulse Oximetry 98 97 12/29/18 16:00 12/29/18 19:00 12/29/18 19:25 Temperature 98.3 F 97.6 F 98.1 F Pulse Rate 92 H 95 H 98 H Respiratory Rate 20 18 18 Blood Pressure 118/60 117/60 124/71 Pulse Oximetry 88 L 97 95 12/29/18 21:12 12/29/18 21:15 12/29/18 21:30 Temperature 97.8 F 98.1 F 98.1 F Pulse Rate 92 H 92 H 113 H Respiratory Rate 18 18 18 Blood Pressure 156/69 H 156/69 H 161/71 H Pulse Oximetry 98 97 99 12/29/18 21:45 12/29/18 22:00 12/29/18 22:30 Temperature 98.1 F 98.1 F Pulse Rate 106 H 98 H Respiratory Rate 18 18 Blood Pressure 173/105 H 139/90 Pulse Oximetry 96 97 95 12/29/18 23:02 12/30/18 03:52 Temperature 99.4 F 99.2 F Pulse Rate 86 79 Respiratory Rate 18 18 Blood Pressure 118/62 127/63 Pulse Oximetry 92 L 93 L Intake & Output 12/29/18 12/30/18 12/30/18 18:59 06:59 18:59 Intake Total 2500 / 2500 1560 / 1560 Output Total 950 / 950 850 / 850 Balance 1550 / 1550 710 / 710 Weight 50.8 kg 50.8 kg Intake: IV 2500 / 2500 700 / 700 D5W Inj 1,000 ML @ 125 mls/hr 1999 / 1999 500 / 500 IV.CONT .Q8H [facility] Rx#:[id number] NS Inj 500 ML @ 1000 mls/hr IV. 500 / 500 SIG BOLUS [facility] Rx#:[id number] Ancef Inj 2 GM In NS Inj 100 ML 100 / 100 @ 100 mls/hr IV.SIG ONCE ONE Rx#:[id number] Ancef Inj 1,000 MG In NS Inj 100 / 100 100 ML @ 200 mls/hr IV.SIG Q8H [facility] Rx#:[id number] Oral 360 / 360 Anesthesia Amount 500 / 500 Output: Estimated Blood Loss 100 / 100 Urine Amount (Catheter) 950 / 950 750 / 750 Indwelling Urethral Catheter 950 / 950 750 / 750 Other: Date of Last Bowel Movement 12/28/18 12/28/18 # Bowel Movements 0 Weight On Admission 50.8 kg Narrative: Sleeping but arousable Right lower extremity: Dressing in place over hip without significant drainage. Negative Homans. Patient appears grossly intact throughout. Brisk cap refill - Urinary Catheter Management Indwelling Urethral Catheter Cath placed during this visit: yes, but has since been removed by the nurse Reason for continuing: Decision to DC catheter Insertion date: 12/28/18 Insertion time: 14:30 Removal date: 12/30/18 Removal time: 05:20 Results - Labs CBC & Chem 7: 12/30/18 05:15 12/30/18 05:15 Laboratory Results - last 24 hr 12/29/18 12/29/18 12/29/18 06:22 06:22 08:00 WBC 10.8 RBC 3.76 L Hgb 10.7 L Hct 32.2 L MCV 85.5 MCH 28.3 MCHC 33.2 RDW 17.5 H Plt Count 182 MPV 9.4 Neut % (Auto) 74.2 H Lymph % (Auto) 15.5 [place] % (Auto) 9.7 H Eos % (Auto) 0.3 Baso % (Auto) 0.3 Neut # (Auto) 8.0 H Lymph # (Auto) 1.7 [place] # (Auto) 1.1 H Eos # (Auto) 0.0 Baso # (Auto) 0.0 WBC Differential . Differential Comment Auto diff final Sodium 155 H Potassium 3.8 Chloride 123 H Carbon Dioxide 21.6 Anion Gap 10 BUN 100 H Creatinine 1.95 H Estimated GFR 25 L POC Glucose 316 H Random Glucose 309 H D Calcium 7.7 L 12/29/18 12/29/18 12/29/18 09:57 11:10 16:44 WBC RBC Hgb Hct MCV MCH MCHC RDW Plt Count MPV Neut % (Auto) Lymph % (Auto) [place] % (Auto) Eos % (Auto) Baso % (Auto) Neut # (Auto) Lymph # (Auto) [place] # (Auto) Eos # (Auto) Baso # (Auto) WBC Differential Differential Comment Sodium 156 H* Potassium 3.5 Chloride 124 H Carbon Dioxide 23.9 Anion Gap 8 BUN 93 H Creatinine 2.01 H Estimated GFR 24 L POC Glucose 175 H 334 H Random Glucose 170 H D Calcium 8.0 L 12/29/18 12/29/18 12/30/18 18:04 19:29 00:50 WBC RBC Hgb Hct MCV MCH MCHC RDW Plt Count MPV Neut % (Auto) Lymph % (Auto) [place] % (Auto) Eos % (Auto) Baso % (Auto) Neut # (Auto) Lymph # (Auto) [place] # (Auto) Eos # (Auto) Baso # (Auto) WBC Differential Differential Comment Sodium 151 H 153 H Potassium Chloride Carbon Dioxide Anion Gap BUN Creatinine Estimated GFR POC Glucose 128 H Random Glucose Calcium 12/30/18 12/30/18 12/30/18 05:03 05:15 05:15 WBC 15.6 H RBC 3.41 L Hgb 9.3 L Hct 28.7 L MCV 84.2 MCH 27.3 MCHC 32.4 RDW 17.3 H Plt Count 154 MPV 9.4 Neut % (Auto) Lymph % (Auto) [place] % (Auto) Eos % (Auto) Baso % (Auto) Neut # (Auto) Lymph # (Auto) [place] # (Auto) Eos # (Auto) Baso # (Auto) WBC Differential Differential Comment Sodium 150 H Potassium 3.7 Chloride 118 H Carbon Dioxide 24.2 Anion Gap 8 BUN 48 H Creatinine 1.46 H Estimated GFR 35 L POC Glucose 260 H Random Glucose 248 H Calcium 7.6 L - Imaging Impressions Hip X-Ray 12/29/18 00:00 CONCLUSION: Successful ORIF. Assessment and Plan - Assessment and Plan 73-year-old female with multiple medical problems found down at home and with glucose in the 400s on presentation, patient was found to have a closed right intertrochanteric femur fracture, postop day 1 status post intramedullary nail right intertrochanteric femur fracture 1. Partial weightbearing 50% right lower extremity 2. Physical therapy for mobilization 3. Lovenox for DVT prophylaxis. May switch to Xarelto for 3 weeks upon discharge. 4. Dressing may remain in place provided it remains clean and dry. Should he become saturated, would plan for dressing changes with Xeroform and Primapore 5. Okay for discharge planning from orthopedic standpoint. Follow-up in 2 weeks.
[2018-12-30] MEDS: Sertraline 50 MG Tablet PO SCH (09:16)
[2018-12-30] MEDS: Budesonide-Formoterol 160/4.5 MCG 6 GM Inhaler INH SCH ×2 (09:16→21:35)
[2018-12-30] MEDS: Senna/Docusate Sodium 8.6/50 MG Tablet PO SCH ×2 (09:16→21:30)
--- NOTE | 2018-12-30 09:57 | P.PNFP ---
Subjective Interval history: No acute events overnight. s/p POD #1 post intramedullary nail right intertrochanteric femur fracture Sitting up in bed, eating breakfast Has not yet passed gas Denies fever, SOB, CP, and N/v <aTvo HameedGreta Crespo T - 12/30/18 14:55> Results - Labs Result diagrams: 12/31/18 05:17 12/31/18 05:17 <Adele Romero - 01/01/19 15:16> Abnormal lab results 12/29/18 12/29/18 12/29/18 Range/Units 09:57 11:10 16:44 WBC (4.0-11.0) th/mm3 RBC (4.00-5.30) mil/mm3 Hgb (11.6-15.3) gm/dL Hct (35.0-46.0) % RDW (11.6-17.2) % Sodium 156 H* (136-145) meq/L Chloride 124 H (98-107) meq/L BUN 93 H (7-18) mg/dL Creatinine 2.01 H (0.50-1.00) mg/dL Estimated GFR 24 L (>89) mL/min POC Glucose 175 H 334 H (68-110) mg/dl Random Glucose 170 H D (74-106) mg/dL Calcium 8.0 L (8.5-10.1) mg/dL 12/29/18 12/29/18 12/30/18 Range/Units 18:04 19:29 00:50 WBC (4.0-11.0) th/mm3 RBC (4.00-5.30) mil/mm3 Hgb (11.6-15.3) gm/dL Hct (35.0-46.0) % RDW (11.6-17.2) % Sodium 151 H 153 H (136-145) meq/L Chloride (98-107) meq/L BUN (7-18) mg/dL Creatinine (0.50-1.00) mg/dL Estimated GFR (>89) mL/min POC Glucose 128 H (68-110) mg/dl Random Glucose (74-106) mg/dL Calcium (8.5-10.1) mg/dL 12/30/18 12/30/18 12/30/18 Range/Units 05:03 05:15 05:15 WBC 15.6 H (4.0-11.0) th/mm3 RBC 3.41 L (4.00-5.30) mil/mm3 Hgb 9.3 L (11.6-15.3) gm/dL Hct 28.7 L (35.0-46.0) % RDW 17.3 H (11.6-17.2) % Sodium 150 H (136-145) meq/L Chloride 118 H (98-107) meq/L BUN 48 H (7-18) mg/dL Creatinine 1.46 H (0.50-1.00) mg/dL Estimated GFR 35 L (>89) mL/min POC Glucose 260 H (68-110) mg/dl Random Glucose 248 H (74-106) mg/dL Calcium 7.6 L (8.5-10.1) mg/dL 12/30/18 Range/Units 07:19 WBC (4.0-11.0) th/mm3 RBC (4.00-5.30) mil/mm3 Hgb (11.6-15.3) gm/dL Hct (35.0-46.0) % RDW (11.6-17.2) % Sodium (136-145) meq/L Chloride (98-107) meq/L BUN (7-18) mg/dL Creatinine (0.50-1.00) mg/dL Estimated GFR (>89) mL/min POC Glucose 216 H (68-110) mg/dl Random Glucose (74-106) mg/dL Calcium (8.5-10.1) mg/dL Short CBC 12/30/18 Range/Units 05:15 WBC 15.6 H (4.0-11.0) th/mm3 Hgb 9.3 L (11.6-15.3) gm/dL Hct 28.7 L (35.0-46.0) % Plt Count 154 (150-450) th/mm3 BMP 12/29/18 12/29/18 12/30/18 09:57 18:04 00:50 Sodium 156 H* 151 H 153 H Potassium 3.5 Chloride 124 H Carbon Dioxide 23.9 BUN 93 H Creatinine 2.01 H Calcium 8.0 L 12/30/18 05:15 Sodium 150 H Potassium 3.7 Chloride 118 H Carbon Dioxide 24.2 BUN 48 H Creatinine 1.46 H Calcium 7.6 L <Greta Frias T - 12/30/18 09:57> - Imaging Impressions Hip X-Ray 12/29/18 00:00 CONCLUSION: Successful ORIF. <Greta Frias T - 12/30/18 09:57> Physical Exam Vital signs: Vital Signs 12/29/18 11:51 12/29/18 13:34 12/29/18 16:00 Temperature 98.7 F 98.3 F Pulse Rate 105 H 92 H Respiratory Rate 16 18 20 Blood Pressure 107/53 L 118/60 Pulse Oximetry 97 88 L 12/29/18 19:00 12/29/18 19:25 12/29/18 21:12 Temperature 97.6 F 98.1 F 97.8 F Pulse Rate 95 H 98 H 92 H Respiratory Rate 18 18 18 Blood Pressure 117/60 124/71 156/69 H Pulse Oximetry 97 95 98 12/29/18 21:15 12/29/18 21:30 12/29/18 21:45 Temperature 98.1 F 98.1 F 98.1 F Pulse Rate 92 H 113 H 106 H Respiratory Rate 18 18 18 Blood Pressure 156/69 H 161/71 H 173/105 H Pulse Oximetry 97 99 96 12/29/18 22:00 12/29/18 22:30 12/29/18 23:02 Temperature 98.1 F 99.4 F Pulse Rate 98 H 86 Respiratory Rate 18 18 Blood Pressure 139/90 118/62 Pulse Oximetry 97 95 92 L 12/30/18 03:52 12/30/18 07:35 12/30/18 07:36 Temperature 99.2 F 99.9 F H Pulse Rate 79 76 Respiratory Rate 18 16 Blood Pressure 127/63 123/57 L Pulse Oximetry 93 L 94 L 94 L Intake & Output 12/29/18 12/30/18 12/30/18 18:59 06:59 18:59 Intake Total 2500 / 2500 1560 / 1560 Output Total 950 / 950 850 / 850 Balance 1550 / 1550 710 / 710 Weight 50.8 kg 50.8 kg Intake: IV 2500 / 2500 700 / 700 D5W Inj 1,000 ML @ 125 mls/hr 1999 / 1999 500 / 500 IV.CONT .Q8H [facility] Rx#:[id number] NS Inj 500 ML @ 1000 mls/hr IV. 500 / 500 SIG BOLUS [facility] Rx#:[id number] Ancef Inj 2 GM In NS Inj 100 ML 100 / 100 @ 100 mls/hr IV.SIG ONCE ONE Rx#:[id number] Ancef Inj 1,000 MG In NS Inj 100 / 100 100 ML @ 200 mls/hr IV.SIG Q8H [facility] Rx#:[id number] Oral 360 / 360 Anesthesia Amount 500 / 500 Output: Estimated Blood Loss 100 / 100 Urine Amount (Catheter) 950 / 950 750 / 750 Indwelling Urethral Catheter 950 / 950 750 / 750 Other: Date of Last Bowel Movement 12/28/18 12/28/18 01/25/19 # Bowel Movements 0 Weight On Admission 50.8 kg <Greta Frias 12/30/18 09:57> Narrative: General: Well developed, in no acute distress Neck: Trachea midline, no masses or lymphadenopathy Respiratory: Normal respiratory effort, lungs clear to auscultation bilaterally with good aeration Cardiovascular: Regular rate and rhythm without murmur, 2+ pedal pulses, no peripheral edema Abdomen: Bowel sounds present. Soft, non-tender. No masses noted. Skin: Bandage over surgical incision site on right thigh Psychiatric: alert and oriented x 3 <Greta Frias - 12/30/18 14:55> - Urinary Catheter Management Indwelling Urethral Catheter Cath placed during this visit: no <Adele Romero - 01/01/19 15:16> yes, but has since been removed by the nurse <Greta Frias 12/30/18 14:55> Reason for continuing: Decision to DC catheter <Greta Frias 09:57> Insertion date: 12/28/18 <Greta Frias 12/30/18 09:57> Insertion time: 14:30 <Greta Frias 12/30/18 09:57> Removal date: 12/30/18 <Greta Frias 12/30/18 09:57> Removal time: 05:20 <Greta Frias 12/30/18 09:57> Assessment and Plan - Assessment (1) Altered mental status Code(s): R41.82 - Altered mental status, unspecified Status: Acute (2) Hypernatremia Code(s): E87.0 - Hyperosmolality and hypernatremia Status: Acute (3) Hip fracture Code(s): S72.009A - Fracture of unspecified part of neck of unspecified femur, initial encounter for closed fracture Status: Acute (4) Diabetes Code(s): E11.9 - Type 2 diabetes mellitus without complications Status: Acute (5) Asthma Code(s): J45.909 - Unspecified asthma, uncomplicated Status: Acute (6) Acute metabolic encephalopathy Code(s): G93.41 - Metabolic encephalopathy Status: Acute <Adele Romero - 01/01/19 15:16> (1) Altered mental status Code(s): R41.82 - Altered mental status, unspecified Status: Acute (2) Hypernatremia Code(s): E87.0 - Hyperosmolality and hypernatremia Status: Acute (3) Hip fracture Code(s): S72.009A - Fracture of unspecified part of neck of unspecified femur, initial encounter for closed fracture Status: Acute (4) Diabetes Code(s): E11.9 - Type 2 diabetes mellitus without complications Status: Acute (5) Asthma Code(s): J45.909 - Unspecified asthma, uncomplicated Status: Acute (6) Acute metabolic encephalopathy Code(s): G93.41 - Metabolic encephalopathy Status: Acute <Tavo HameedGretatomeka Ag - 12/30/18 14:47> - Assessment and Plan She is a 73-year-old female who presented long after her hip fracture. She reports that she was poorly mobile for 2-3 weeks after a fall. She was brought by EMS. She is a difficult historian. Hip fracture: s/p POD1 intramedullary nail right intertrochanteric femur fracture Lovenox for DVT ppx. Will switch to xarelto for 3 weeks upon discharge Dressing may remain in place provided it remains clean and dry. Should he become saturated, would plan for dressing changes with Xeroform and Primapore Discharge from ortho standpoint. F/U outpatient in 2 weeks Hypernatremia and mental status changes: Mental status changes are most likely due to her hyponatremia/hyperosmolality. She also had a CT brain in the ED which shows diffuse cerebral atrophy some small vessel ischemic changes, but no acute infarct or hemorrhage. It is unclear how much of her mental status changes are chronic or acute. Her history of severe immobility for the past couple weeks is the likely cause of her hypernatremia. -Improved, Na 150 today -Patient is alert and oriented Diabetes: States she is taking metformin in the past, not currently on any medication Sliding scale insulin low-dose before meals at bedtime and 3 AM History of asthma: Albuterol as needed Fluids: PO hydration Electrolytes: monitor and replete as needed, further detailed above Nutrition: Diabetic diet GI prophylaxis: not indicated VTE prophylaxis: Lovenox Disposition: Will need SNF placement, 3 night admission stay needed <Greta Frias - 12/30/18 14:55> - Attending Attestation The exam, history, and the medical decision-making described in the above note were completed with the assistance of the resident physician. I reviewed and agree with the findings presented. I attest that I had a [id number] encounter with the patient on the same day, and personally performed and documented my assessment and findings in the medical record. improving cognitively everyday <Adele Romero - 01/01/19 15:16> <Greta Frias - Last Filed: 12/30/18 14:47> (1) Altered mental status Qualifiers: Altered mental status type: transient alteration of awareness Qualified Code( s): R40.4 - Transient alteration of awareness (3) Hip fracture Qualifiers: Encounter type: initial encounter Fracture type: closed (4) Diabetes Qualifiers: Diabetes mellitus type: type 2 (5) Asthma Qualifiers: Asthma severity: mild <Adele Romero - Last Filed: 01/01/19 15:16> (1) Altered mental status Qualifiers: Altered mental status type: transient alteration of awareness Qualified Code( s): R40.4 - Transient alteration of awareness (3) Hip fracture Qualifiers: Encounter type: initial encounter Fracture type: closed (4) Diabetes Qualifiers: Diabetes mellitus type: type 2 (5) Asthma Qualifiers: Asthma severity: mild <Greta Frias T - Last Filed: 12/30/18 14:47> (1) Altered mental status Qualifiers: Altered mental status type: transient alteration of awareness Qualified Code( s): R40.4 - Transient alteration of awareness (3) Hip fracture Qualifiers: Encounter type: initial encounter Fracture type: closed (4) Diabetes Qualifiers: Diabetes mellitus type: type 2 (5) Asthma Qualifiers: Asthma severity: mild <Adele Romero M - Last Filed: 01/01/19 15:16> (1) Altered mental status Qualifiers: Altered mental status type: transient alteration of awareness Qualified Code( s): R40.4 - Transient alteration of awareness (3) Hip fracture Qualifiers: Encounter type: initial encounter Fracture type: closed (4) Diabetes Qualifiers: Diabetes mellitus type: type 2 (5) Asthma Qualifiers: Asthma severity: mild
[2018-12-30] MEDS ORDERED: Enoxaparin Inj 40 MG/0.4 ML Syringe SQ SCH (11:00)
[2018-12-31] MEDS: Morphine Inj 4 MG/ML Vial IV.PUSH PRN (00:39)
[2018-12-31] MEDS: Insulin NovoLOG Aspart Correctional Sugar Inj SQ SCH ×3 (04:27→12:06)
[2018-12-31 06:05] LABS: Baso % (Auto) 0.2 % (0.0-2.0); Eos # (Auto) 0.2 th/mm3 (0.0-0.4); Eos % (Auto) 1.6 % (0.0-4.0); Hematocrit 28.8 % (35.0-46.0); Hemoglobin 9.5 gm/dL (11.6-15.3); Lymph # (Auto) 1.8 th/mm3 (1.0-4.8); Lymph % (Auto) 17.4 % (9.0-44.0); Mean Corpuscular HGB Conc 32.9 % (32.0-36.0); Mean Corpuscular Hemoglobin 28.1 pg (27.0-34.0); Mean Corpuscular Volume 85.4 fL (80.0-100.0); Mean Platelet Volume 9.3 fL (7.0-11.0); Mono # (Auto) 0.7 th/mm3 (0.0-0.9); Mono % (Auto) 6.2 % (0.0-8.0); Neut # (Auto) 7.9 th/mm3 (1.8-7.7); Neut % (Auto) 74.6 % (16.0-70.0); Platelet Count 133 th/mm3 (150-450); Red Blood Count 3.37 mil/mm3 (4.00-5.30); Red Cell Distribution Width 17.5 % (11.6-17.2); White Blood Count 10.6 th/mm3 (4.0-11.0)
[2018-12-31 06:25] LABS: Calcium 7.7 mg/dL (8.5-10.1); Carbon Dioxide 24.1 meq/L (21.0-32.0); Potassium 3.4 meq/L (3.5-5.1)
--- NOTE | 2018-12-31 08:17 | P.PNOP ---
Subjective Interval history: POD #2 status post intramedullary nail right intertrochanteric femur fracture, [place] Patient is awake and alert. She states her pain is well controlled. She states she has worked with PT. Physical Exam Vital signs: Vital Signs 12/30/18 12:04 12/30/18 12:14 12/30/18 16:00 Temperature 97.6 F 98.1 F Pulse Rate 69 99 H Respiratory Rate 18 18 18 Blood Pressure 129/79 120/53 L Pulse Oximetry 98 95 12/30/18 18:14 12/30/18 19:45 12/30/18 20:54 Temperature 98.8 F Pulse Rate 74 Respiratory Rate 18 18 Blood Pressure 130/63 Pulse Oximetry 95 98 12/31/18 00:02 12/31/18 04:25 Temperature 99.3 F 99.3 F Pulse Rate 69 81 Respiratory Rate 18 18 Blood Pressure 146/66 H 136/63 Pulse Oximetry 96 95 Intake & Output 12/30/18 12/31/18 12/31/18 18:59 06:59 18:59 Intake Total 1392.5 / 1392.5 265 / 265 Balance 1392.5 / 1392.5 265 / 265 Weight 52 kg Intake: IV 1392.5 / 1392.5 D5W Inj 1,000 ML @ 125 mls/hr 1292.5 / 1292.5 IV.CONT .Q8H [facility] Rx#:[id number] Ancef Inj 1,000 MG In NS Inj 100 / 100 100 ML @ 200 mls/hr IV.SIG Q8H [facility] Rx#:[id number] Oral 265 / 265 Other: # Voids 2 Date of Last Bowel Movement 01/25/19 12/28/18 Narrative: RLE: Dressing dry and intact. Tender to palpation with mild swelling around incision site. Appropriate range of motion expected post operatively. Freely able to move distal digits. No calf pain. Negative Alma's sign. Good cap refill. 2+ pedal pulses. Neurovascular intact. - Urinary Catheter Management Indwelling Urethral Catheter Cath placed during this visit: yes, but has since been removed by the nurse Reason for continuing: Decision to DC catheter Insertion date: 12/28/18 Insertion time: 14:30 Removal date: 12/30/18 Removal time: 05:20 Results - Labs CBC & Chem 7: 12/31/18 05:17 12/31/18 05:17 Laboratory Results - last 24 hr 12/30/18 12/30/18 12/30/18 11:37 16:45 21:24 WBC RBC Hgb Hct MCV MCH MCHC RDW Plt Count MPV Neut % (Auto) Lymph % (Auto) [place] % (Auto) Eos % (Auto) Baso % (Auto) Neut # (Auto) Lymph # (Auto) [place] # (Auto) Eos # (Auto) Baso # (Auto) WBC Differential Differential Comment Sodium Potassium Chloride Carbon Dioxide Anion Gap BUN Creatinine Estimated GFR POC Glucose 248 H 281 H 153 H Random Glucose Calcium 12/31/18 12/31/18 12/31/18 04:20 05:17 05:17 WBC 10.6 RBC 3.37 L Hgb 9.5 L Hct 28.8 L MCV 85.4 MCH 28.1 MCHC 32.9 RDW 17.5 H Plt Count 133 L MPV 9.3 Neut % (Auto) 74.6 H Lymph % (Auto) 17.4 [place] % (Auto) 6.2 Eos % (Auto) 1.6 Baso % (Auto) 0.2 Neut # (Auto) 7.9 H Lymph # (Auto) 1.8 [place] # (Auto) 0.7 Eos # (Auto) 0.2 Baso # (Auto) 0.0 WBC Differential . Differential Comment Auto diff final Sodium 142 Potassium 3.4 L Chloride 110 H D Carbon Dioxide 24.1 Anion Gap 8 BUN 25 H Creatinine 1.03 H Estimated GFR 53 L POC Glucose 148 H Random Glucose 121 H D Calcium 7.7 L 12/31/18 08:05 WBC RBC Hgb Hct MCV MCH MCHC RDW Plt Count MPV Neut % (Auto) Lymph % (Auto) [place] % (Auto) Eos % (Auto) Baso % (Auto) Neut # (Auto) Lymph # (Auto) [place] # (Auto) Eos # (Auto) Baso # (Auto) WBC Differential Differential Comment Sodium Potassium Chloride Carbon Dioxide Anion Gap BUN Creatinine Estimated GFR POC Glucose 146 H Random Glucose Calcium Assessment and Plan - Assessment and Plan POD #2 status post intramedullary nail right intertrochanteric femur fracture, [place] 1. Partial weightbearing 50% right lower extremity 2. Physical therapy for mobilization 3. Lovenox for DVT prophylaxis. May switch to Xarelto for 3 weeks upon discharge. 4. Dressing may remain in place provided it remains clean and dry. Should he become saturated, would plan for dressing changes with Xeroform and Primapore 5. Clear for discharge from orthopedic standpoint. Follow-up in 2 weeks.
[2018-12-31] MEDS: Sertraline 50 MG Tablet PO SCH (09:24)
[2018-12-31] MEDS: Senna/Docusate Sodium 8.6/50 MG Tablet PO SCH (09:24)
[2018-12-31] MEDS: Budesonide-Formoterol 160/4.5 MCG 6 GM Inhaler INH SCH (09:25)
[2018-12-31 09:29] VITALS: BP 147/67; PULSE 78; RESP 16; TEMP 98.5; O2SAT 97
--- NOTE | 2018-12-31 09:47 | P.PNFP ---
Subjective Interval history: No acute events overnight. Patient has no new complaints this morning. Postop day #2 intramedullary nail for a right intratrochanteric femur fracture She has been eating and drinking well. She denies fever, chills, nausea, vomiting, chest pain, shortness of breath, palpitations, abdominal pain <Berkley RandhawaJocelynnkarly Watkins - 12/31/18 10:44> Results - Labs Result diagrams: 12/31/18 05:17 12/31/18 05:17 <Adele Romero - 01/01/19 15:17> Abnormal lab results 12/30/18 12/30/18 12/30/18 Range/Units 11:37 16:45 21:24 RBC (4.00-5.30) mil/mm3 Hgb (11.6-15.3) gm/dL Hct (35.0-46.0) % RDW (11.6-17.2) % Plt Count (150-450) th/mm3 Neut % (Auto) (16.0-70.0) % Neut # (Auto) (1.8-7.7) th/mm3 Potassium (3.5-5.1) meq/L Chloride (98-107) meq/L BUN (7-18) mg/dL Creatinine (0.50-1.00) mg/dL Estimated GFR (>89) mL/min POC Glucose 248 H 281 H 153 H (68-110) mg/dl Random Glucose (74-106) mg/dL Calcium (8.5-10.1) mg/dL 12/31/18 12/31/18 12/31/18 Range/Units 04:20 05:17 05:17 RBC 3.37 L (4.00-5.30) mil/mm3 Hgb 9.5 L (11.6-15.3) gm/dL Hct 28.8 L (35.0-46.0) % RDW 17.5 H (11.6-17.2) % Plt Count 133 L (150-450) th/mm3 Neut % (Auto) 74.6 H (16.0-70.0) % Neut # (Auto) 7.9 H (1.8-7.7) th/mm3 Potassium 3.4 L (3.5-5.1) meq/L Chloride 110 H D (98-107) meq/L BUN 25 H (7-18) mg/dL Creatinine 1.03 H (0.50-1.00) mg/dL Estimated GFR 53 L (>89) mL/min POC Glucose 148 H (68-110) mg/dl Random Glucose 121 H D (74-106) mg/dL Calcium 7.7 L (8.5-10.1) mg/dL 12/31/18 Range/Units 08:05 RBC (4.00-5.30) mil/mm3 Hgb (11.6-15.3) gm/dL Hct (35.0-46.0) % RDW (11.6-17.2) % Plt Count (150-450) th/mm3 Neut % (Auto) (16.0-70.0) % Neut # (Auto) (1.8-7.7) th/mm3 Potassium (3.5-5.1) meq/L Chloride (98-107) meq/L BUN (7-18) mg/dL Creatinine (0.50-1.00) mg/dL Estimated GFR (>89) mL/min POC Glucose 146 H (68-110) mg/dl Random Glucose (74-106) mg/dL Calcium (8.5-10.1) mg/dL Short CBC 12/31/18 Range/Units 05:17 WBC 10.6 (4.0-11.0) th/mm3 Hgb 9.5 L (11.6-15.3) gm/dL Hct 28.8 L (35.0-46.0) % Plt Count 133 L (150-450) th/mm3 BMP 12/31/18 05:17 Sodium 142 Potassium 3.4 L Chloride 110 H D Carbon Dioxide 24.1 BUN 25 H Creatinine 1.03 H Calcium 7.7 L <Michel Chou - 12/31/18 09:46> Physical Exam Vital signs: Vital Signs 12/30/18 12:04 12/30/18 12:14 12/30/18 16:00 Temperature 97.6 F 98.1 F Pulse Rate 69 99 H Respiratory Rate 18 18 18 Blood Pressure 129/79 120/53 L Pulse Oximetry 98 95 12/30/18 18:14 12/30/18 19:45 12/30/18 20:54 Temperature 98.8 F Pulse Rate 74 Respiratory Rate 18 18 Blood Pressure 130/63 Pulse Oximetry 95 98 12/31/18 00:02 12/31/18 04:25 12/31/18 08:00 Temperature 99.3 F 99.3 F 98.5 F Pulse Rate 69 81 78 Respiratory Rate 18 18 16 Blood Pressure 146/66 H 136/63 147/67 H Pulse Oximetry 96 95 97 Intake & Output 12/30/18 12/31/18 12/31/18 18:59 06:59 18:59 Intake Total 1392.5 / 1392.5 265 / 265 Balance 1392.5 / 1392.5 265 / 265 Weight 52 kg Intake: IV 1392.5 / 1392.5 D5W Inj 1,000 ML @ 125 mls/hr 1292.5 / 1292.5 IV.CONT .Q8H MIKHAIL Rx#:[id number] Ancef Inj 1,000 MG In NS Inj 100 / 100 100 ML @ 200 mls/hr IV.SIG Q8H MIKHAIL Rx#:[id number] Oral 265 / 265 Other: # Voids 2 Date of Last Bowel Movement 01/25/19 12/28/18 <Michel Chou - 12/31/18 09:46> Narrative: General: Well developed, in no acute distress Eyes: EOMI, anicteric scleral, no conjunctival injection ENT: Atraumatic, MMM Neck: Trachea midline Respiratory: Normal respiratory effort, lungs clear to auscultation bilaterally with good aeration Cardiovascular: Regular rate and rhythm without murmur, 2+ pedal pulses, no peripheral edema Abdomen: Bowel sounds present. Soft, non-tender. No masses noted. Skin: no rashes or lesions noted. Dressing over surgical incision CDI. Erythema to the right heel. Psychiatric: Alert and oriented. Normal affect. <Michel Chou - 12/31/18 10:44> - Urinary Catheter Management Indwelling Urethral Catheter Cath placed during this visit: no <Adele Romero - 01/01/19 15:17> yes, but has since been removed by the nurse <Michel Chou - 12/31/18 10:56> Reason for continuing: Decision to DC catheter <Michel Chou 12/20 09:46> Insertion date: 12/28/18 <Michel Chou - 12/31/18 09:46> Insertion time: 14:30 <Michel Chou - 12/31/18 09:46> Removal date: 12/30/18 <Michel Chou - 12/31/18 09:46> Removal time: 05:20 <Michel Chou - 12/31/18 09:46> Assessment and Plan - Assessment (1) Altered mental status Code(s): R41.82 - Altered mental status, unspecified Status: Acute (2) Hypernatremia Code(s): E87.0 - Hyperosmolality and hypernatremia Status: Acute (3) Hip fracture Code(s): S72.009A - Fracture of unspecified part of neck of unspecified femur, initial encounter for closed fracture Status: Acute (4) Diabetes Code(s): E11.9 - Type 2 diabetes mellitus without complications Status: Acute (5) Asthma Code(s): J45.909 - Unspecified asthma, uncomplicated Status: Acute (6) Acute metabolic encephalopathy Code(s): G93.41 - Metabolic encephalopathy Status: Acute <Adele Romero - 01/01/19 15:17> (1) Altered mental status Code(s): R41.82 - Altered mental status, unspecified Status: Acute (2) Hypernatremia Code(s): E87.0 - Hyperosmolality and hypernatremia Status: Acute (3) Hip fracture Code(s): S72.009A - Fracture of unspecified part of neck of unspecified femur, initial encounter for closed fracture Status: Acute (4) Diabetes Code(s): E11.9 - Type 2 diabetes mellitus without complications Status: Acute (5) Asthma Code(s): J45.909 - Unspecified asthma, uncomplicated Status: Acute (6) Acute metabolic encephalopathy Code(s): G93.41 - Metabolic encephalopathy Status: Acute <Michel Chou - 12/31/18 10:54> - Assessment and Plan She is a 73-year-old female who presented long after her hip fracture. She reports that she was poorly mobile for 2-3 weeks after a fall. She was brought by EMS. Her mental status has improved significantly. Hip fracture: POD #2 intramedullary nail right intertrochanteric femur fracture Lovenox for DVT ppx. Will switch to xarelto for 3 weeks upon discharge Dressing may remain in place provided it remains clean and dry. Should he become saturated, would plan for dressing changes with Xeroform and [place] Service cleared her for discharge Hypernatremia and mental status changes: Mental status changes are most likely due to her hyponatremia/hyperosmolality. She also had a CT brain in the ED which shows diffuse cerebral atrophy some small vessel ischemic changes, but no acute infarct or hemorrhage. It is unclear how much of her mental status changes are chronic or acute. Her history of severe immobility for the past couple weeks is the likely cause of her hypernatremia. -Sodium improved to normal limits today and mental status has improved Diabetes: Sliding scale insulin as needed -We will continue home medication metformin on discharge History of asthma: Albuterol as needed Fluids: Adequate p.o. intake Electrolytes: monitor and replete as needed which that Nutrition: Diabetic diet GI prophylaxis: not indicated VTE prophylaxis: Lovenox, will switch to Xarelto [facility] <Michel Chou - 12/31/18 10:56> - Attending Attestation The exam, history, and the medical decision-making described in the above note were completed with the assistance of the resident physician. I reviewed and agree with the findings presented. I attest that I had a [id number] encounter with the patient on the same day, and personally performed and documented my assessment and findings in the medical record. she is improving with her renal fxn, electrolytes and mentally as well <Adele Romero - 01/01/19 15:17> <Berkley RandhawaMichel Roland - Last Filed: 12/31/18 10:54> (1) Altered mental status Qualifiers: Altered mental status type: transient alteration of awareness Qualified Code( s): R40.4 - Transient alteration of awareness (3) Hip fracture Qualifiers: Encounter type: initial encounter Fracture type: closed (4) Diabetes Qualifiers: Diabetes mellitus type: type 2 (5) Asthma Qualifiers: Asthma severity: mild <Adele Romero - Last Filed: 01/01/19 15:17> (1) Altered mental status Qualifiers: Altered mental status type: transient alteration of awareness Qualified Code( s): R40.4 - Transient alteration of awareness (3) Hip fracture Qualifiers: Encounter type: initial encounter Fracture type: closed (4) Diabetes Qualifiers: Diabetes mellitus type: type 2 (5) Asthma Qualifiers: Asthma severity: mild <Michel Chou Roland - Last Filed: 12/31/18 10:54> (1) Altered mental status Qualifiers: Altered mental status type: transient alteration of awareness Qualified Code( s): R40.4 - Transient alteration of awareness (3) Hip fracture Qualifiers: Encounter type: initial encounter Fracture type: closed (4) Diabetes Qualifiers: Diabetes mellitus type: type 2 (5) Asthma Qualifiers: Asthma severity: mild <Adele Romero - Last Filed: 01/01/19 15:17> (1) Altered mental status Qualifiers: Altered mental status type: transient alteration of awareness Qualified Code( s): R40.4 - Transient alteration of awareness (3) Hip fracture Qualifiers: Encounter type: initial encounter Fracture type: closed (4) Diabetes Qualifiers: Diabetes mellitus type: type 2 (5) Asthma Qualifiers: Asthma severity: mild
[2018-12-31] MEDS ORDERED: Enoxaparin Inj 30 MG/0.3 ML Syringe SQ SCH (12:00)
--- NOTE | 2018-12-31 20:53 | P.DS ---
Date of admission: 12/28/18 15:31 Primary care physician: UNKNOWN Brief History from admission: Ms Pruitt is a 73-year-old female who presented after a fall and hip fracture. Stated that she was found yelling behind her apartment door by a [employer] who was canvassing there. EMS found her on the floor. She stated that her original fall was 2-3 weeks ago. She had pain in the hip immediately after the fall, continues to have pain at this time. Since that time she states she was able to get up and walk around the house. At one point she also stated that she was able to eat and drink a normal amount and that she was urinating a normal amount. She does not use a walker or cane at home. At another point during the interview she stated: "I might be exaggerating some of this." She denies lightheadedness, dizziness, chest pain, palpitations, shortness of breath. She is oriented to person and place, but not to time. Her statements are inconsistent and sometimes difficult to understand. This am she is requesting water and coffee. It is difficult to know exactly what happened as she stated, "I am just waking up and don't want to answer questions Medical: History of diabetes, states not currently treated. later she said she was once taking metformin but not currently She does have a history of hypertension, but does not think she is on any meds right now asthma as a kid and adult, takes albuterol as needed Surgical: Denies surgical history Social: Lives by herself Unable to assess her functional status due to her mental state DS: Diagnosis - Discharge Diagnosis (1) Altered mental status Status: Acute (2) Hypernatremia Status: Acute (3) Hip fracture Status: Acute (4) Diabetes Status: Acute (5) Asthma Status: Acute (6) Acute metabolic encephalopathy Status: Acute DS: Medications - Discharge Medications Prescriptions: rivaroxaban [Xarelto] 10 mg PO DAILY #19 tab DS: Summary Hospital Course: She was admitted for right intertrochanteric hip fracture, hypernatremia, and AMS with plan for fixation on HD-2. Her electrolyte abnormalities and ELICEO improved with fluid resuscitation with isotonic fluids first and then D5 water to improve her hypernatremia. She underwent intramedullary nailing on HD-2 as planned. She tolerated the procedure well and was but on Lovenox for DVT ppx w/ plan to switch to xarelto x 3 weeks on DC. Her mental status had some interval improvement and she was discharged in stable condition to [facility] on HD-4. - Time Spent with Patient Total time spent providing and/or coordinating discharge services: Less than 30 minutes - Quality: VTE Deep Vein Thrombosis/Pulmonary Embolism Present on Admission: No Exam Vital signs: Vital Signs 12/30/18 20:54 12/31/18 00:02 12/31/18 04:25 Temperature 98.8 F 99.3 F 99.3 F Pulse Rate 74 69 81 Respiratory Rate 18 18 18 Blood Pressure 130/63 146/66 H 136/63 Pulse Oximetry 98 96 95 12/31/18 08:00 Temperature 98.5 F Pulse Rate 78 Respiratory Rate 16 Blood Pressure 147/67 H Pulse Oximetry 97 Intake & Output 12/31/18 12/31/18 01/01/19 06:59 18:59 06:59 Intake Total 265 / 265 Balance 265 / 265 Weight 52 kg Intake: Oral 265 / 265 Other: # Voids 2 Date of Last Bowel Movement 12/28/18 Narrative: General: Well developed, in no acute distress Eyes: EOMI, anicteric scleral, no conjunctival injection ENT: Atraumatic, MMM Neck: Trachea midline Respiratory: Normal respiratory effort, lungs clear to auscultation bilaterally with good aeration Cardiovascular: Regular rate and rhythm without murmur, 2+ pedal pulses, no peripheral edema Abdomen: Bowel sounds present. Soft, non-tender. No masses noted. Skin: no rashes or lesions noted. Dressing over surgical incision CDI. Erythema to the right heel. Psychiatric: Alert and oriented. Normal affect. Results Procedures completed during hospitalization: right intramedullary nail Labs on day of discharge: Labs from last 24 hours 12/31/18 12/31/18 12/31/18 12:04 08:05 05:17 WBC RBC Hgb Hct MCV MCH MCHC RDW Plt Count MPV Neut % (Auto) Lymph % (Auto) [place] % (Auto) Eos % (Auto) Baso % (Auto) Neut # (Auto) Lymph # (Auto) [place] # (Auto) Eos # (Auto) Baso # (Auto) WBC Differential Differential Comment Sodium 142 Potassium 3.4 L Chloride 110 H D Carbon Dioxide 24.1 Anion Gap 8 BUN 25 H Creatinine 1.03 H Estimated GFR 53 L POC Glucose 226 H 146 H Random Glucose 121 H D Calcium 7.7 L 12/31/18 12/31/18 12/30/18 05:17 04:20 21:24 WBC 10.6 RBC 3.37 L Hgb 9.5 L Hct 28.8 L MCV 85.4 MCH 28.1 MCHC 32.9 RDW 17.5 H Plt Count 133 L MPV 9.3 Neut % (Auto) 74.6 H Lymph % (Auto) 17.4 [place] % (Auto) 6.2 Eos % (Auto) 1.6 Baso % (Auto) 0.2 Neut # (Auto) 7.9 H Lymph # (Auto) 1.8 [place] # (Auto) 0.7 Eos # (Auto) 0.2 Baso # (Auto) 0.0 WBC Differential . Differential Comment Auto diff final Sodium Potassium Chloride Carbon Dioxide Anion Gap BUN Creatinine Estimated GFR POC Glucose 148 H 153 H Random Glucose Calcium - Impressions ITS Impressions Chest X-Ray 12/28/18 12:14 CONCLUSION: 1. No acute cardiopulmonary disease. 2. Degenerative changes and scoliosis of the thoracic spine. Head CT 12/28/18 13:34 CONCLUSION: 1. Diffuse cerebral atrophy. 2. Moderate periventricular and subcortical white matter small vessel ischemic changes bilaterally. 3. No acute infarct, acute hemorrhage, midline shift or extra-axial fluid collection. . . Hip X-Ray 12/29/18 00:00 CONCLUSION: Successful ORIF. Discharge Plan - Discharge Disposition Patient Disposition: Discharge Home - Discharge Condition Condition: Stable - Discharge Order Discharge Orders: Discharge Order (Routine); Ordered 12/31/18 Ordered By: Michel Gooden R1 - Physicians Team Primary Care Provider: UNKNOWN, Attending Provider: Adele Romero Other Providers: Lyudmila Villar MD ; [employer]
== END 2018-12-31 13:41 | disposition home or self-care (01) | DRG 480 ==
LOC: NEPE 11:23 → NEDA 15:31 → N06 21:13
PROVIDERS: ADMIT Family Medicine; ATTEND Family Medicine
CPT/HCPCS: 51702; 70450; 71010; 71045; 73502; 76000; 80048; 80053; 80307; 81001; 82550; 82552; 82570; 82948; 82962; 83935; 84295; 84300; 85025; 85027; 85610; 85730; 86850; 86900; 86901; 90761; 90774; 90775; 90776; 90784; 93005; 94150; 96361; 96374; 96375; 96376; 97110; 97163; 97530; 99285; C1713; C8952; J0690; J1100; J1580; J1650; J1815; J2270; J2370; J2405; J2704; J2710; J3010; J7030; J7040; J7070; J7120